=== PATIENT | male | born 1975 | race Caucasian/White ===

== ENCOUNTER 2016-05-03 12:53 | Emergency (ER) | payer MEDICARE ==
[~2016-05-03] VITALS: Ht 198.1 cm; Wt 132.0 kg
[~2016-05-03 12:53] MED LIST: ACETAMINOPHEN W1 TA6 PO; ADVAIR 250/28 DISKUS IH; ADVAIR 500/28 DISKUS IH; ADVAIR IH; ALBUTEROL0.09 MG/A1 IH; ALBUTEROL0.83 MG/ML IH; ALEVE 220MG220 MG PO; AMANTADINE HCL100 M1 PO; AMARYL PO; AMBIEN 10MG10 MG PO; AMBIEN CR12.5 MG PO; ASPIRIN E.C. 8181 MG PO; ATIVAN 0.50.5 MG/TAB PO; ATIVAN 1MG T1 MG/TAB PO; AUGMENTIN 875 M1 TAB PO; AVANZA; AVINZA; B12; BACTRIM DS 8001 TAB PO; BIAXIN500 MG PO; BUSPAR DIVIDOSE15 MG PO; BUSPAR10 MG PO; BUSPIRONE; CATAPRES-T0.2 MG/24 TD; CEPHALEXIN500 M1 PO; CIPRO 500MG TA500 MG PO; CLEOCIN HCL300 MG PO; CLINDAMYCIN HC300 MG PO; CLINDAMYCIN300 MG PO; CLONAZEPAM PO; CYMBALTA 60MG60 MG PO; CYPROHEPTADINE H4 MG PO; DILAUDID 2MG TAB2 MG PO; DILAUDID 4MG TAB4 MG PO; DILAUDID4 MG PO; DOXYCYCLINE 10100 MG PO; ESCITALOPRAM PO; FLEXERIL10 MG PO; GABAPENTIN300 M1 PO; GABAPENTIN600 MG PO; GLIPIZIDE10 M1 PO; GLUCOPHAGE PO; GLUCOPHAGE1000 MG PO; GLYBURIDE MICRON3 MG PO; GLYBURIDE5 MG PO; HYDROCODONE/APAP; INSULIN R (N100 U/ML IJ; INSULIN R (N100 U/ML SC; KLONOPIN 1MG1 MG PO; KLONOPIN2 MG PO; LAMICTAL 25MG T25 MG PO; LANTUS100 U/ML; LANTUS100 U/ML SQ; LASIX 40MG TABL40 MG PO; LIPITOR 40MG TA40 MG PO; LISINOPRIL10 MG PO; LOPRESSOR 225 MG/TAB PO; MELATONIN3 M1 PO; METFORMIN1000 MG PO; METHADONE H10 MG/TAB PO; METHOCARBAMOL500 MG PO; MORPHINE ER; MOTRIN 400400 MG/TAB PO; MOTRIN 800800 MG/TAB PO; MS CONTIN 115 MG/TAB PO; MS CONTIN 660 MG/TAB PO; MS CONTIN100 MG PO; NEURONTIN600 MG/TAB PO; NITROSTAT0.4 MG/TAB SL; NOVOLIN R100 U/ML IJ; NOVOLOG 100U100 U/M1 SC; NOVOLOG 100U100 U/M1 SQ; NOVOLOG100 U/ML IV; ORAMORPH PO; PEN-VEE K500 MG PO; PERCOCET 500 MG1 TAB PO; PERCOCET 650 MG1 TAB PO; PERCR 7.5 PO; PHENERGAN 25 TA25 MG PO; PLAVIX 75MG TAB75 MG PO; PREDNISONE 20MG20 MG PO; PREDNISONE 5MG5 MG PO; PREDNISONE20 MG PO; PRIL40 PO; PROAIR HFA0.09 MG/AC IH; PROVENTIL0.09 MG/A1 IH; PROVENTIL0.09 MG/AC IH; SEPTRA DS 8001 TAB PO; SEROQUEL; SINGULAIR; SOMA 350MG350 MG/TAB PO; UNABLE; VALERIAN ROOT PO; VENTOLIN0.09 MG IH; ZESTRIL10 MG PO; ZESTRIL40 MG PO; ZITHROMAX 250M250 MG PO; [UNRECOGNIZED DRUG - OTHER]; [UNRECOGNIZED DRUG - OTHER]; [UNRECOGNIZED DRUG - OTHER]; [UNRECOGNIZED DRUG - REMARK]; lantus insulin
[2016-05-03 13:03] VITALS: TEMP 98.3
[2016-05-03 14:36] LABS: BASO % 0.3 % (0.0-2.0); EOS % 0.4 % (0-4.0); GRAN # 5.1 (1.4-6.5); GRAN % 55.2 % (42.2-75.2); HEMATOCRIT 44.4 % (42.0-52.0); HEMOGLOBIN 15.6 g/dl (13.5-18.0); LYMPH # 3.6 (1.2-3.4); LYMPH % 38.6 % (20.0-51.0); MEAN CELL VOLUME 80 fl (80.0-100.0); MEAN CORPUSCULAR HEMOGLOBIN 28 pg (27.0-31.0); MEAN CORPUSCULAR HGB CONC 35 g/dl (33.0-37.0); MEAN PLATELET VOLUME 9.5 fl (7.4-10.4); MONO # 0.5 (0.1-0.6); MONO % 5.2 % (1.7-9.3); PLATELET COUNT 219 K/mm3 (130-400); RED BLOOD COUNT 5.54 M/mm3 (4.20-5.60); REDCELL DISTRIBUTION WIDTH-CV 13.6 % (11.5-14.5); WHITE BLOOD COUNT 9.3 K/mm3 (4.8-10.8)
[2016-05-03 14:56] LABS: ADJUSTED CALCIUM 9.4 mg/dL (8.4-10.2); ALANINE AMINOTRANSFERASE 40 U/L (21-72); ALBUMIN 4.2 gm/dL (3.5-5.0); ALKALINE PHOSPHATASE 96 U/L (50-136); ANION GAP 14 mmol/L (7-16); BLOOD UREA NITROGEN 9 mg/dL (9-20); CALCIUM 9.6 mg/dL (8.4-10.2); CARBON DIOXIDE 25 mmol/L (22-30); CHLORIDE 93 mmol/L (98-107); CREATININE, serum 0.51 mg/dL (0.66-1.25); POTASSIUM 4.3 mmol/L (3.4-5.0); SODIUM 132 mmol/L (137-145); TOTAL PROTEIN 8.2 gm/dL (6.4-8.2)
[2016-05-03 14:59] LABS: GLUCOSE 578 mg/dL (74-106)
[2016-05-03] MEDS ORDERED: NORCO 325 MG-7.1 TAB PO (16:36)
[2016-05-03] MEDS ORDERED: CLEOCIN HC150 MG/CAP PO (16:36)
[2016-05-03] MEDS ORDERED: NOVLOG SQ (16:36)
[2016-05-03] MEDS ORDERED: LANTUS SOLOS100 U/ML SQ (16:36)
[2016-05-03 17:18] VITALS: BP 157/107; PULSE 95
== END 2016-05-03 17:21 | disposition home or self-care (01) ==
LOC: COL.ER 12:53
PROVIDERS: Emergency Medicine
DX: E11.65 Type 2 diabetes mellitus with hyperglycemia (principal); K04.7 Periapical abscess without sinus; T38.3X6A Underdosing of insulin and oral hypoglycemic [antidiabetic] drugs, initial encounter; Z91.128 Patient's intentional underdosing of medication regimen for other reason; I10 Essential (primary) hypertension
CPT/HCPCS: J1170; J1815; J7030

== ENCOUNTER 2016-05-04 10:33 | Emergency (ER) | payer MEDICARE ==
[~2016-05-04] VITALS: Ht 198.1 cm; Wt 132.0 kg
[~2016-05-04 10:33] MED LIST changes: +CLEOCIN HC150 MG/CAP PO; +LANTUS SOLOS100 U/ML SQ; +NORCO 325 MG-7.1 TAB PO; +NOVLOG SQ
[2016-05-04 10:52] VITALS: BP 156/103; PULSE 104; TEMP 97.9
[2016-05-04 12:00] LABS: BASO # 0.1 (0.0-0.2); BASO % 0.4 % (0.0-2.0); EOS # 0.1 (0.0-0.7); EOS % 0.8 % (0-4.0); GRAN # 7.1 (1.4-6.5); GRAN % 58.8 % (42.2-75.2); HEMOGLOBIN 15.5 g/dl (13.5-18.0); LYMPH # 4.1 (1.2-3.4); LYMPH % 34.2 % (20.0-51.0); MEAN CELL VOLUME 80 fl (80.0-100.0); MEAN CORPUSCULAR HEMOGLOBIN 28 pg (27.0-31.0); MEAN CORPUSCULAR HGB CONC 35 g/dl (33.0-37.0); MEAN PLATELET VOLUME 9.4 fl (7.4-10.4); MONO # 0.7 (0.1-0.6); MONO % 5.4 % (1.7-9.3); PLATELET COUNT 234 K/mm3 (130-400); REDCELL DISTRIBUTION WIDTH-CV 13.5 % (11.5-14.5); WHITE BLOOD COUNT 12.1 K/mm3 (4.8-10.8)
[2016-05-04 12:21] LABS: CALCIUM 9.5 mg/dL (8.4-10.2); CREATININE, serum 0.47 mg/dL (0.66-1.25)
[2016-05-05] MEDS ORDERED: NORCO 325 MG-51 TAB PO (13:59)
== END 2016-05-04 15:20 | disposition home or self-care (01) ==
LOC: COL.ER 10:33
PROVIDERS: Physician Assistant
DX: K12.2 Cellulitis and abscess of mouth (principal); K08.89 Other specified disorders of teeth and supporting structures; F17.210 Nicotine dependence, cigarettes, uncomplicated; E10.9 Type 1 diabetes mellitus without complications; Z79.4 Long term (current) use of insulin
CPT/HCPCS: J1170; J1885; J7030; Q9967

== ENCOUNTER 2016-05-05 13:18 | Emergency (ER) | payer MEDICARE ==
[~2016-05-05] VITALS: Ht 198.1 cm; Wt 131.8 kg
[2016-05-05 13:28] VITALS: BP 156/86; TEMP 98.2
[2016-05-05] MEDS ORDERED: NORCO 325 MG-51 TAB PO (13:59)
[2016-05-05 15:09] VITALS: PULSE 112
== END 2016-05-05 15:09 | disposition home or self-care (01) ==
LOC: COL.ER 13:18
DX: K08.89 Other specified disorders of teeth and supporting structures (principal)
CPT/HCPCS: J1885; J2270

== ENCOUNTER 2016-09-23 11:28 | Emergency (ER) | payer MEDICARE ==
[~2016-09-23] VITALS: Ht 198.1 cm; Wt 150.0 kg
[~2016-09-23 11:28] MED LIST changes: +NORCO 325 MG-51 TAB PO
[2016-09-23 11:35] VITALS: TEMP 98.7
[2016-09-23 13:04] VITALS: BP 143/90
[2016-09-23] MEDS ORDERED: PREDNISONE20 MG PO (14:17)
[2016-09-23] MEDS ORDERED: ZITHROMAX Z PA250 MG PO (14:17)
[2016-09-23 14:30] VITALS: PULSE 102
== END 2016-09-23 14:30 | disposition home or self-care (01) ==
LOC: COL.ER 11:28
DX: J20.9 Acute bronchitis, unspecified (principal); J45.909 Unspecified asthma, uncomplicated; E11.9 Type 2 diabetes mellitus without complications; I10 Essential (primary) hypertension; C81.90 Hodgkin lymphoma, unspecified, unspecified site; F17.210 Nicotine dependence, cigarettes, uncomplicated; T48.6X6A Underdosing of antiasthmatics, initial encounter; Z91.138 Patient's unintentional underdosing of medication regimen for other reason; T38.3X6A Underdosing of insulin and oral hypoglycemic [antidiabetic] drugs, initial encounter; R00.0 Tachycardia, unspecified; K03.81 Cracked tooth; R59.0 Localized enlarged lymph nodes
CPT/HCPCS: J7512

== ENCOUNTER 2016-09-26 10:21 | Emergency (ER) | payer MEDICARE ==
[~2016-09-26] VITALS: Ht 198.1 cm; Wt 150.0 kg
[~2016-09-26 10:21] MED LIST changes: +ZITHROMAX Z PA250 MG PO
[2016-09-26 10:23] VITALS: TEMP 98.3
[2016-09-26] MEDS ORDERED: PROVENTIL0.09 MG/A1 IH (10:54)
[2016-09-26 13:21] LABS: BASO % 0.2 % (0.0-2.0); EOS % 0.1 % (0-4.0); GRAN # 7.3 (1.4-6.5); GRAN % 71.5 % (42.2-75.2); HEMATOCRIT 44.4 % (42.0-52.0); HEMOGLOBIN 15.1 g/dl (13.5-18.0); LYMPH # 2.3 (1.2-3.4); LYMPH % 22.3 % (20.0-51.0); MEAN CELL VOLUME 91 fl (80.0-100.0); MEAN CORPUSCULAR HEMOGLOBIN 31 pg (27.0-31.0); MEAN CORPUSCULAR HGB CONC 34 g/dl (33.0-37.0); MEAN PLATELET VOLUME 9.2 fl (7.4-10.4); MONO # 0.6 (0.1-0.6); MONO % 5.5 % (1.7-9.3); PLATELET COUNT 249 K/mm3 (130-400); RED BLOOD COUNT 4.89 M/mm3 (4.20-5.60); REDCELL DISTRIBUTION WIDTH-CV 12.9 % (11.5-14.5); WHITE BLOOD COUNT 10.2 K/mm3 (4.8-10.8)
[2016-09-26 13:23] LABS: ADJUSTED CALCIUM 8.8 mg/dL (8.4-10.2); ALBUMIN 3.8 gm/dL (3.5-5.0); BILIRUBIN,TOTAL 0.8 mg/dL (0.0-1.0); CALCIUM 8.6 mg/dL (8.4-10.2); CREATININE, serum 0.66 mg/dL (0.66-1.25); POTASSIUM 4.1 mmol/L (3.4-5.0); TOTAL PROTEIN 7.3 gm/dL (6.4-8.2)
[2016-09-26 13:34] LABS: TROPONIN-I 0.024 ng/mL (0.000-0.034)
[2016-09-26] MEDS ORDERED: GLUCOPHAGE500 MG/TAB PO (15:40)
[2016-09-26] MEDS ORDERED: PHENERGAN W/CO120 M1 PO (15:40)
[2016-09-26] MEDS ORDERED: LASIX 40MG TABL40 MG PO (15:40)
[2016-09-26 15:49] VITALS: BP 162/108; PULSE 99
== END 2016-09-26 15:50 | disposition home or self-care (01) ==
LOC: COL.ER 10:21
PROVIDERS: Nurse Practitioner
DX: E11.65 Type 2 diabetes mellitus with hyperglycemia (principal); I10 Essential (primary) hypertension; R79.89 Other specified abnormal findings of blood chemistry; J44.9 Chronic obstructive pulmonary disease, unspecified; F17.210 Nicotine dependence, cigarettes, uncomplicated; Z79.4 Long term (current) use of insulin; Z85.72 Personal history of non-Hodgkin lymphomas
CPT/HCPCS: J1940

== ENCOUNTER → 2016-11-16 | Outpatient (CLI) | payer MEDICARE, MEDICAID ==
[~2016-11-16] MED LIST changes: +GLUCOPHAGE500 MG/TAB PO; +PHENERGAN W/CO120 M1 PO
== END ==
LOC: COL.RAD 08:14
DX: M48.06 Spinal stenosis, lumbar region (principal); R53.1 Weakness

== ENCOUNTER 2016-12-24 12:36 | Emergency (ER) | payer MEDICARE, MEDICAID ==
[~2016-12-24] VITALS: Ht 198.1 cm; Wt 151.8 kg
[2016-12-24 12:42] VITALS: TEMP 98.3
[2016-12-24] MEDS ORDERED: DOXYCYCLINE 10100 MG PO (13:40)
[2016-12-24] MEDS ORDERED: LEVEMIR100 U/ML SQ (13:41)
[2016-12-24] MEDS ORDERED: IPRATROPIUM BROM3 M1 IH (13:43)
[2016-12-24] MEDS ORDERED: NEURONTIN300 MG/CAP PO (13:44)
[2016-12-24] MEDS ORDERED: PRINIVIL40 MG PO (13:44)
[2016-12-24] MEDS ORDERED: ASPIRIN E.C. 8181 MG (13:45)
[2016-12-24] MEDS ORDERED: LIPITOR 10MG10 MG (13:45)
[2016-12-24] MEDS ORDERED: LIPITOR 40MG TA40 MG (13:46)
[2016-12-24] MEDS ORDERED: AMBIEN 10MG10 MG PO (13:46)
[2016-12-24] MEDS ORDERED: PLAVIX 75MG TAB75 MG (13:46)
[2016-12-24] MEDS ORDERED: CARTIA XT180 MG (13:46)
[2016-12-24 14:06] LABS: BASO % 0.4 % (0.0-2.0); EOS # 0.1 (0.0-0.7); EOS % 1.1 % (0-4.0); GRAN # 4.6 (1.4-6.5); GRAN % 50.7 % (42.2-75.2); HEMATOCRIT 40.6 % (42.0-52.0); HEMOGLOBIN 13.7 g/dl (13.5-18.0); LYMPH # 3.8 (1.2-3.4); LYMPH % 42.2 % (20.0-51.0); MEAN CELL VOLUME 90 fl (80.0-100.0); MEAN CORPUSCULAR HEMOGLOBIN 30 pg (27.0-31.0); MEAN CORPUSCULAR HGB CONC 34 g/dl (33.0-37.0); MONO # 0.5 (0.1-0.6); MONO % 5.3 % (1.7-9.3); PLATELET COUNT 284 K/mm3 (130-400); RED BLOOD COUNT 4.53 M/mm3 (4.20-5.60); REDCELL DISTRIBUTION WIDTH-CV 13.5 % (11.5-14.5); WHITE BLOOD COUNT 9.1 K/mm3 (4.8-10.8)
[2016-12-24 14:11] LABS: ADJUSTED CALCIUM 9.1 mg/dL (8.4-10.2); ALANINE AMINOTRANSFERASE 32 U/L (21-72); ALBUMIN 4.1 gm/dL (3.5-5.0); ALKALINE PHOSPHATASE 57 U/L (50-136); ANION GAP 12 mmol/L (7-16); BILIRUBIN,TOTAL 0.7 mg/dL (0.0-1.0); BLOOD UREA NITROGEN 14 mg/dL (9-20); CALCIUM 9.2 mg/dL (8.4-10.2); CARBON DIOXIDE 25 mmol/L (22-30); CHLORIDE 103 mmol/L (98-107); CREATININE, serum 0.67 mg/dL (0.66-1.25); GLUCOSE 251 mg/dL (74-106); SODIUM 141 mmol/L (137-145); TOTAL PROTEIN 7.2 gm/dL (6.4-8.2)
[2016-12-24] MEDS ORDERED: PREDNISONE20 MG PO (15:12)
[2016-12-24 15:34] LABS: TROPONIN-I 0.026 ng/mL (0.000-0.034)
[2016-12-24] MEDS ORDERED: LASIX 20MG TABL20 MG PO (15:43)
[2016-12-24 15:55] VITALS: BP 121/95; PULSE 54
== END 2016-12-24 15:55 | disposition home or self-care (01) ==
LOC: COL.ER 12:36
PROVIDERS: Emergency Medicine
DX: J45.909 Unspecified asthma, uncomplicated (principal); J18.9 Pneumonia, unspecified organism; I25.10 Atherosclerotic heart disease of native coronary artery without angina pectoris; E11.9 Type 2 diabetes mellitus without complications; F17.210 Nicotine dependence, cigarettes, uncomplicated; Z98.890 Other specified postprocedural states; Z79.4 Long term (current) use of insulin; Z79.84 Long term (current) use of oral hypoglycemic drugs; Z79.82 Long term (current) use of aspirin
CPT/HCPCS: J1815; J7512

== ENCOUNTER → 2017-01-04 | Outpatient (CLI) | payer MEDICARE, MEDICAID ==
[~2017-01-04] MED LIST changes: +AMOXICILLIN 8751 TAB PO; +CARTIA XT180 MG; +COZAAR 50MG50 MG/TAB PO; +FOLIC ACID 11 MG/TA1 PO; +IPRATROPIUM BROM3 M1 IH; +K-TAB10; +LASIX 20MG TABL20 MG PO; +LEVEMIR100 U/ML SQ; +LIPITOR 10MG10 MG; +LIPITOR 40MG TA40 MG; +MULTI VITAMINS1 TAB PO; +NEURONTIN300 MG/CAP PO; +NICODERM C21 MG/PATC TD; +NITRO-DUR0.6 MG/PAT TD; +PLAVIX 75MG TAB75 MG; +PRINIVIL40 MG PO; +PRINZIDE 12.5 M1 TA1 PO; +THIAMINE 1100 MG/TAB PO; +TOPROL XL 25MG25 MG PO
== END ==
LOC: MHCPAIN 09:45
DX: G89.29 Other chronic pain (principal); M47.27 Other spondylosis with radiculopathy, lumbosacral region; M53.3 Sacrococcygeal disorders, not elsewhere classified; F17.210 Nicotine dependence, cigarettes, uncomplicated; Z79.82 Long term (current) use of aspirin
CPT/HCPCS: G0463

== ENCOUNTER 2017-01-16 10:23 | Emergency (ER) | payer MEDICARE, MEDICAID ==
[~2017-01-16] VITALS: Ht 198.1 cm; Wt 155.5 kg
[2017-01-16 10:27] VITALS: TEMP 97.8
[2017-01-16 11:44] LABS: BASO # 0.1 (0.0-0.2); BASO % 0.6 % (0.0-2.0); EOS # 0.1 (0.0-0.7); EOS % 1.2 % (0-4.0); GRAN # 4.3 (1.4-6.5); GRAN % 49.4 % (42.2-75.2); HEMATOCRIT 39.7 % (42.0-52.0); HEMOGLOBIN 13.1 g/dl (13.5-18.0); LYMPH # 3.7 (1.2-3.4); LYMPH % 42.2 % (20.0-51.0); MEAN CELL VOLUME 92 fl (80.0-100.0); MEAN CORPUSCULAR HEMOGLOBIN 30 pg (27.0-31.0); MEAN CORPUSCULAR HGB CONC 33 g/dl (33.0-37.0); MEAN PLATELET VOLUME 9.4 fl (7.4-10.4); MONO # 0.6 (0.1-0.6); MONO % 6.4 % (1.7-9.3); PLATELET COUNT 228 K/mm3 (130-400); RED BLOOD COUNT 4.34 M/mm3 (4.20-5.60); WHITE BLOOD COUNT 8.7 K/mm3 (4.8-10.8)
[2017-01-16] MEDS ORDERED: REQUIP 1MG T1 MG/TAB PO (11:44)
[2017-01-16 11:54] LABS: ADJUSTED CALCIUM 8.5 mg/dL (8.4-10.2); ALANINE AMINOTRANSFERASE 37 U/L (21-72); ALBUMIN 4.3 gm/dL (3.5-5.0); ALKALINE PHOSPHATASE 48 U/L (50-136); ANION GAP 10 mmol/L (7-16); BILIRUBIN,TOTAL 0.5 mg/dL (0.0-1.0); BLOOD UREA NITROGEN 20 mg/dL (9-20); CALCIUM 8.7 mg/dL (8.4-10.2); CARBON DIOXIDE 23 mmol/L (22-30); CHLORIDE 106 mmol/L (98-107); CREATININE, serum 0.77 mg/dL (0.66-1.25); GLUCOSE 196 mg/dL (74-106); POTASSIUM 4.3 mmol/L (3.4-5.0); SODIUM 140 mmol/L (137-145); TOTAL PROTEIN 7.2 gm/dL (6.4-8.2)
[2017-01-16 11:55] LABS: PROTHROMBIN TIME 11.2 SECONDS (9.7-12.8)
[2017-01-16 11:58] LABS: C-REACTIVE PROTEIN < 0.5 mg/dL (0.0-0.9)
[2017-01-16 12:02] LABS: TROPONIN-I 0.015 ng/mL (0.000-0.034)
[2017-01-16] MEDS ORDERED: ULTRAM 50MG TAB50 MG PO (12:38)
[2017-01-16 12:55] VITALS: BP 123/88; PULSE 101
== END 2017-01-16 12:57 | disposition home or self-care (01) ==
LOC: COL.ER 10:23
PROVIDERS: Emergency Medicine
DX: G89.29 Other chronic pain (principal); M54.6 Pain in thoracic spine; E78.5 Hyperlipidemia, unspecified; E11.42 Type 2 diabetes mellitus with diabetic polyneuropathy; I11.0 Hypertensive heart disease with heart failure; I50.9 Heart failure, unspecified; I25.10 Atherosclerotic heart disease of native coronary artery without angina pectoris; F17.210 Nicotine dependence, cigarettes, uncomplicated; Z98.890 Other specified postprocedural states; Z79.82 Long term (current) use of aspirin; Z79.4 Long term (current) use of insulin; X58.XXXA Exposure to other specified factors, initial encounter
CPT/HCPCS: J1885; J7040; Q9967

== ENCOUNTER 2017-01-20 10:38 | Emergency (ER) | payer MEDICARE, MEDICAID ==
[~2017-01-20] VITALS: Ht 198.1 cm; Wt 156.8 kg
[~2017-01-20 10:38] MED LIST changes: +REQUIP 1MG T1 MG/TAB PO; +ULTRAM 50MG TAB50 MG PO
[2017-01-20 10:46] VITALS: TEMP 95.8
[2017-01-20] MEDS ORDERED: ZANAFLEX CAPSULE4 MG PO (11:58)
[2017-01-20] MEDS ORDERED: NATURE'S BLEND100 M2 PO (11:59)
[2017-01-20 12:22] LABS: BASO # 0.1 (0.0-0.2); BASO % 0.5 % (0.0-2.0); EOS % 0.3 % (0-4.0); GRAN # 6.3 (1.4-6.5); GRAN % 62.9 % (42.2-75.2); HEMATOCRIT 39.6 % (42.0-52.0); HEMOGLOBIN 12.9 g/dl (13.5-18.0); LYMPH % 29.8 % (20.0-51.0); MEAN CELL VOLUME 92 fl (80.0-100.0); MEAN CORPUSCULAR HEMOGLOBIN 30 pg (27.0-31.0); MEAN CORPUSCULAR HGB CONC 33 g/dl (33.0-37.0); MEAN PLATELET VOLUME 9.7 fl (7.4-10.4); MONO # 0.6 (0.1-0.6); MONO % 6.1 % (1.7-9.3); PLATELET COUNT 228 K/mm3 (130-400); RED BLOOD COUNT 4.29 M/mm3 (4.20-5.60)
[2017-01-20 12:27] LABS: ADJUSTED CALCIUM 8.7 mg/dL (8.4-10.2); ALANINE AMINOTRANSFERASE 70 U/L (21-72); ALBUMIN 3.9 gm/dL (3.5-5.0); ALKALINE PHOSPHATASE 89 U/L (50-136); ANION GAP 12 mmol/L (7-16); BILIRUBIN,TOTAL 0.7 mg/dL (0.0-1.0); BLOOD UREA NITROGEN 27 mg/dL (9-20); CALCIUM 8.6 mg/dL (8.4-10.2); CARBON DIOXIDE 21 mmol/L (22-30); CHLORIDE 102 mmol/L (98-107); CREATININE, serum 1.36 mg/dL (0.66-1.25); GLUCOSE 219 mg/dL (74-106); POTASSIUM 4.6 mmol/L (3.4-5.0); SODIUM 135 mmol/L (137-145); TOTAL PROTEIN 6.8 gm/dL (6.4-8.2)
[2017-01-20 12:38] LABS: TROPONIN-I < 0.012 ng/mL (0.000-0.034)
[2017-01-20 14:07] LABS: C-REACTIVE PROTEIN 1.4 mg/dL (0.0-0.9)
[2017-01-20] MEDS ORDERED: LASIX 40MG TABL40 MG PO (14:28)
[2017-01-20] MEDS ORDERED: PHENERGAN 25 TA25 MG PO (15:42)
[2017-01-20 15:43] VITALS: BP 96/66; PULSE 87
== END 2017-01-20 15:54 | disposition home or self-care (01) ==
LOC: COL.ER 10:38
PROVIDERS: Emergency Medicine
DX: R06.00 Dyspnea, unspecified (principal); R11.10 Vomiting, unspecified; E10.9 Type 1 diabetes mellitus without complications; I25.10 Atherosclerotic heart disease of native coronary artery without angina pectoris; I50.9 Heart failure, unspecified; Z95.5 Presence of coronary angioplasty implant and graft; Z79.82 Long term (current) use of aspirin
CPT/HCPCS: C9113; J1170; J2550; J7030

== ENCOUNTER 2017-03-30 09:20 | Emergency (ER) | payer MEDICARE, MEDICAID ==
[~2017-03-30] VITALS: Ht 198.1 cm; Wt 216.5 kg
[~2017-03-30 09:20] MED LIST changes: +BREO IH; +ENTRESTO 24 MG1 EACH PO; +K-DUR 10 MEQ T10 MEQ PO; +LIORESAL 1010 MG/TAB PO; +LYRICA 100MG C100 M1 PO; +NATURE'S BLEND100 M2 PO; +ZANAFLEX CAPSULE4 MG PO
[2017-03-30 09:23] VITALS: BP 136/72; TEMP 98.1
[2017-03-30 10:47] LABS: ALBUMIN 3.9 gm/dL (3.5-5.0); BILIRUBIN,TOTAL 0.7 mg/dL (0.0-1.0); CALCIUM 8.6 mg/dL (8.4-10.2); CREATININE, serum 0.8 mg/dL (0.66-1.25); POTASSIUM 4.1 mmol/L (3.4-5.0); TOTAL PROTEIN 7.1 gm/dL (6.4-8.2)
[2017-03-30 11:07] LABS: BASO % 0.6 % (0.0-2.0); EOS # 0.1 (0.0-0.7); EOS % 1.7 % (0-4.0); GRAN # 3.3 (1.4-6.5); HEMATOCRIT 42.1 % (42.0-52.0); HEMOGLOBIN 13.1 g/dl (13.5-18.0); LYMPH # 2.2 (1.2-3.4); LYMPH % 35.1 % (20.0-51.0); MEAN CELL VOLUME 88 fl (80.0-100.0); MEAN CORPUSCULAR HEMOGLOBIN 28 pg (27.0-31.0); MEAN CORPUSCULAR HGB CONC 31 g/dl (33.0-37.0); MONO # 0.6 (0.1-0.6); MONO % 9.4 % (1.7-9.3); PLATELET COUNT 226 K/mm3 (130-400); RED BLOOD COUNT 4.76 M/mm3 (4.20-5.60); REDCELL DISTRIBUTION WIDTH-CV 14.7 % (11.5-14.5)
[2017-03-30] MEDS ORDERED: DEMADEX 20MG20 M1 PO (15:20)
[2017-03-30] MEDS ORDERED: ZAROXOLYN5 MG PO (15:20)
[2017-03-30 16:30] VITALS: PULSE 85
== END 2017-03-30 16:30 | disposition home or self-care (01) ==
LOC: COL.ER 09:20
PROVIDERS: Emergency Medicine
DX: R60.0 Localized edema (principal); E11.9 Type 2 diabetes mellitus without complications; I11.0 Hypertensive heart disease with heart failure; I50.9 Heart failure, unspecified; E66.01 Morbid (severe) obesity due to excess calories; E78.00 Pure hypercholesterolemia, unspecified; F17.210 Nicotine dependence, cigarettes, uncomplicated; Z68.43 Body mass index [BMI] 50.0-59.9, adult; Z85.72 Personal history of non-Hodgkin lymphomas; Z79.4 Long term (current) use of insulin; Z79.82 Long term (current) use of aspirin
CPT/HCPCS: J1170

== ENCOUNTER → 2017-04-07 | Outpatient (CLI) | payer MEDICARE, MEDICAID ==
[~2017-04-07] MED LIST changes: +ATIVAN2 MG PO; +DEMADEX 20MG20 M1 PO; +MAG-OX 400400 MG/TAB PO; +NORCO 325 MG-101 TAB PO; +VITAMIN D 50,1.25 MG PO; +ZAROXOLYN5 MG PO
== END ==
LOC: MHCPAIN 13:48
DX: G89.29 Other chronic pain (principal); M47.23 Other spondylosis with radiculopathy, cervicothoracic region; M53.3 Sacrococcygeal disorders, not elsewhere classified; F17.210 Nicotine dependence, cigarettes, uncomplicated
CPT/HCPCS: G0463

== ENCOUNTER 2017-09-11 13:27 | Emergency (ER) | payer MEDICARE ==
[~2017-09-11] VITALS: Ht 198.1 cm; Wt 159.1 kg
[~2017-09-11 13:27] MED LIST changes: +ALDACTONE50 MG PO; +COLACE 100100 MG/CAP PO; +DULCOLAX S10 MG/SUPP RC; +MIRALAX 255 GM255 GM PO
[2017-09-11 13:34] VITALS: TEMP 97.5
[2017-09-11] MEDS ORDERED: CLEOCIN HCL300 MG PO (14:04)
[2017-09-11 14:14] VITALS: PULSE 104
== END 2017-09-11 14:14 | disposition home or self-care (01) ==
LOC: COL.ER 13:27
DX: K02.9 Dental caries, unspecified (principal); E11.9 Type 2 diabetes mellitus without complications; I10 Essential (primary) hypertension; F17.210 Nicotine dependence, cigarettes, uncomplicated; J45.909 Unspecified asthma, uncomplicated; I42.9 Cardiomyopathy, unspecified; Z79.84 Long term (current) use of oral hypoglycemic drugs

== ENCOUNTER 2017-10-01 13:00 | Outpatient (RCR) | payer MEDICARE | END 2017-10-20 11:13 | disposition home or self-care (01) | LOC: WSPT 13:00 | DX: M54.16 Radiculopathy, lumbar region (principal); M53.3 Sacrococcygeal disorders, not elsewhere classified; M47.897 Other spondylosis, lumbosacral region; Z85.72 Personal history of non-Hodgkin lymphomas; Z92.21 Personal history of antineoplastic chemotherapy | CPT/HCPCS: G8978-GP; G8979-GP; G8980-GP ==

== ENCOUNTER 2017-12-07 14:28 | Inpatient (IN) | payer MEDICARE ==
[~2017-12-07] VITALS: Ht 198.1 cm; Wt 165.6 kg
[~2017-12-07 14:28] MED LIST changes: -LIPITOR 40MG TA40 MG
[2017-12-07 15:39] LABS: BASO % 0.4 % (0.0-2.0); EOS # 0.1 (0.0-0.7); EOS % 1.1 % (0-4.0); GRAN # 6.8 (1.4-6.5); HEMATOCRIT 40.4 % (42.0-52.0); HEMOGLOBIN 13.8 g/dl (13.5-18.0); LYMPH # 1.8 (1.2-3.4); LYMPH % 18.4 % (20.0-51.0); MEAN CELL VOLUME 88 fl (80.0-100.0); MEAN CORPUSCULAR HEMOGLOBIN 30 pg (27.0-31.0); MEAN CORPUSCULAR HGB CONC 34 g/dl (33.0-37.0); MEAN PLATELET VOLUME 9.7 fl (7.4-10.4); MONO # 0.8 (0.1-0.6); MONO % 8.6 % (1.7-9.3); PLATELET COUNT 228 K/mm3 (130-400); RED BLOOD COUNT 4.58 M/mm3 (4.20-5.60); REDCELL DISTRIBUTION WIDTH-CV 12.2 % (11.5-14.5)
[2017-12-07 15:48] LABS: ALBUMIN 3.5 gm/dL (3.5-5.0); BILIRUBIN,TOTAL 0.6 mg/dL (0.0-1.0); CALCIUM 8.1 mg/dL (8.4-10.2); CREATININE, serum 0.52 mg/dL (0.66-1.25); POTASSIUM 3.5 mmol/L (3.4-5.0); TOTAL PROTEIN 7.2 gm/dL (6.4-8.2)
[2017-12-07 16:00] LABS: C-REACTIVE PROTEIN 26.2 mg/dL (0.0-0.9)
[2017-12-07 16:10] LABS: TROPONIN-I < 0.012 ng/mL (0.000-0.034)
[2017-12-07] MEDS ORDERED: KLONOPIN2 MG PO (22:10)
[2017-12-07] MEDS ORDERED: DAZIDOX10 MG PO (22:11)
[2017-12-07 22:48] VITALS: BP 145/90; PULSE 113; TEMP 99
== END 2017-12-08 00:05 | disposition short-term general hospital (02) | DRG 727 ==
LOC: COL.ER 14:28 → ICU 17:31
PROVIDERS: Emergency Medicine; Urology
PROC: 0V950ZZ Drainage of Scrotum, Open Approach (ICD-10-PCS; principal; 2017-12-07 20:30)
DX: N49.3 Fournier gangrene (principal); E11.10 Type 2 diabetes mellitus with ketoacidosis without coma; I50.22 Chronic systolic (congestive) heart failure; I42.9 Cardiomyopathy, unspecified; B95.1 Streptococcus, group B, as the cause of diseases classified elsewhere; B95.2 Enterococcus as the cause of diseases classified elsewhere; F17.210 Nicotine dependence, cigarettes, uncomplicated; E11.42 Type 2 diabetes mellitus with diabetic polyneuropathy; Z79.4 Long term (current) use of insulin; Z95.810 Presence of automatic (implantable) cardiac defibrillator; J44.9 Chronic obstructive pulmonary disease, unspecified; Z85.72 Personal history of non-Hodgkin lymphomas; I11.0 Hypertensive heart disease with heart failure
CPT/HCPCS: J0330; J1100; J1170; J1815; J2060; J2405; J2543; J2704; J3010; J3370; J7030; J7040; Q9967

== ENCOUNTER 2018-02-09 11:52 | Emergency (ER) | payer MEDICARE ==
[~2018-02-09] VITALS: Ht 198.1 cm; Wt 181.8 kg
[~2018-02-09 11:52] MED LIST changes: +DAZIDOX10 MG PO
[2018-02-09 11:55] VITALS: TEMP 97.5
[2018-02-09 13:21] LABS: BASO # 0.1 (0.0-0.2); BASO % 0.6 % (0.0-2.0); EOS # 0.2 (0.0-0.7); EOS % 1.8 % (0-4.0); GRAN # 4.6 (1.4-6.5); HEMATOCRIT 45.1 % (42.0-52.0); LYMPH # 3.5 (1.2-3.4); LYMPH % 39.8 % (20.0-51.0); MEAN CELL VOLUME 87 fl (80.0-100.0); MEAN CORPUSCULAR HEMOGLOBIN 29 pg (27.0-31.0); MEAN CORPUSCULAR HGB CONC 33 g/dl (33.0-37.0); MONO # 0.5 (0.1-0.6); MONO % 5.6 % (1.7-9.3); PLATELET COUNT 199 K/mm3 (130-400); RED BLOOD COUNT 5.17 M/mm3 (4.20-5.60); REDCELL DISTRIBUTION WIDTH-CV 13.3 % (11.5-14.5)
[2018-02-09 13:26] LABS: BILIRUBIN,TOTAL 0.3 mg/dL (0.0-1.0); CALCIUM 8.4 mg/dL (8.4-10.2); CREATININE, serum 0.8 mg/dL (0.66-1.25); POTASSIUM 3.9 mmol/L (3.4-5.0); TOTAL PROTEIN 7.4 gm/dL (6.4-8.2)
[2018-02-09] MEDS ORDERED: CEPHALEXIN500 M1 PO ×2 (15:11→16:16)
[2018-02-09] MEDS ORDERED: NORCO 325 MG-51 TAB PO (15:11)
[2018-02-09 16:22] VITALS: BP 126/88; PULSE 89
== END 2018-02-09 16:44 | disposition home or self-care (01) ==
LOC: COL.ER 11:52
PROVIDERS: Family Medicine
DX: S31.119A Laceration without foreign body of abdominal wall, unspecified quadrant without penetration into peritoneal cavity, initial encounter (principal); S61.412A Laceration without foreign body of left hand, initial encounter; Z23 Encounter for immunization; Z79.4 Long term (current) use of insulin; Z79.02 Long term (current) use of antithrombotics/antiplatelets; Z79.82 Long term (current) use of aspirin; Z87.891 Personal history of nicotine dependence; X99.1XXA Assault by knife, initial encounter
CPT/HCPCS: J0690; J1170; J2405; J7030; Q9967

== ENCOUNTER → 2018-04-07 | Emergency (ER) | payer MEDICARE ==
[~2018-04-07] VITALS: Ht 198.1 cm; Wt 181.8 kg
[~2018-04-07] MED LIST changes: +TESSALON PERLE200 MG PO
[2018-04-07 06:00] VITALS: TEMP 97.2
[2018-04-07 06:51] LABS: BASO # 0.1 (0.0-0.2); BASO % 0.9 % (0.0-2.0); EOS # 0.1 (0.0-0.7); EOS % 2.2 % (0-4.0); GRAN # 3.6 (1.4-6.5); GRAN % 55.3 % (42.2-75.2); HEMATOCRIT 44.1 % (42.0-52.0); HEMOGLOBIN 14.7 g/dl (13.5-18.0); LYMPH # 2.1 (1.2-3.4); LYMPH % 31.9 % (20.0-51.0); MEAN CELL VOLUME 86 fl (80.0-100.0); MEAN CORPUSCULAR HEMOGLOBIN 29 pg (27.0-31.0); MEAN CORPUSCULAR HGB CONC 33 g/dl (33.0-37.0); MEAN PLATELET VOLUME 9.6 fl (7.4-10.4); MONO # 0.6 (0.1-0.6); MONO % 9.2 % (1.7-9.3); PLATELET COUNT 193 K/mm3 (130-400); RED BLOOD COUNT 5.12 M/mm3 (4.20-5.60); REDCELL DISTRIBUTION WIDTH-CV 13.5 % (11.5-14.5)
[2018-04-07 06:59] LABS: ALBUMIN 4.2 gm/dL (3.5-5.0); BILIRUBIN,TOTAL 0.6 mg/dL (0.0-1.0); CALCIUM 8.9 mg/dL (8.4-10.2); CREATININE, serum 0.59 mg/dL (0.66-1.25); POTASSIUM 4.7 mmol/L (3.4-5.0); TOTAL PROTEIN 7.7 gm/dL (6.4-8.2)
[2018-04-07 07:10] LABS: TROPONIN-I 0.015 ng/mL (0.000-0.034)
[2018-04-07 11:07] VITALS: BP 112/99; PULSE 110
--- NOTE | 2018-04-07 11:07 | NUR ---
diversified crops farmworker met with patient and assisted with voucher for medications at [facility]. Patient currently resides at the [facility] and is working with Yi Uribe at the [facility] to obtain apartment in the [facility] month. Worker arranged for financial counselor to meet with patient regarding medicaid application. Worker encouraged patient to make appointment at [facility] for medication assistance and to contact [facility] to help with other prescriptions. Worker assisted with a taxi coupon to [facility] and then to the [facility]. Worker collaborated with physician and nurse regarding the above information.
== END ==
LOC: COL.ER 05:59
PROVIDERS: Emergency Medicine
DX: R07.89 Other chest pain (principal); R06.02 Shortness of breath; I50.9 Heart failure, unspecified; E78.5 Hyperlipidemia, unspecified; I25.10 Atherosclerotic heart disease of native coronary artery without angina pectoris; I10 Essential (primary) hypertension; E11.9 Type 2 diabetes mellitus without complications; F17.210 Nicotine dependence, cigarettes, uncomplicated; J44.9 Chronic obstructive pulmonary disease, unspecified; Z79.4 Long term (current) use of insulin; Z79.82 Long term (current) use of aspirin; Z79.02 Long term (current) use of antithrombotics/antiplatelets
CPT/HCPCS: J1100

== ENCOUNTER → 2018-07-04 | Outpatient (CLI) | payer MEDICARE | LOC: COL.RAD 14:12 | DX: M25.511 Pain in right shoulder (principal) ==

== ENCOUNTER 2018-08-02 10:23 | Emergency (ER) | payer MEDICARE ==
[~2018-08-02] VITALS: Ht 198.1 cm; Wt 163.6 kg
[2018-08-02 10:26] VITALS: TEMP 97.2
[2018-08-02 10:59] LABS: HEMATOCRIT 44.9 % (42.0-52.0); HEMOGLOBIN 14.6 g/dl (13.5-18.0); MEAN CELL VOLUME 88 fl (80.0-100.0); MEAN CORPUSCULAR HEMOGLOBIN 29 pg (27.0-31.0); MEAN CORPUSCULAR HGB CONC 33 g/dl (33.0-37.0); MEAN PLATELET VOLUME 9.1 fl (7.4-10.4); PLATELET COUNT 246 K/mm3 (130-400); RED BLOOD COUNT 5.12 M/mm3 (4.20-5.60); REDCELL DISTRIBUTION WIDTH-CV 14.5 % (11.5-14.5)
[2018-08-02 11:10] LABS: ALBUMIN 4.1 gm/dL (3.5-5.0); BILIRUBIN,TOTAL 0.9 mg/dL (0.0-1.0); CREATININE, serum 0.6 (0.66-1.25); POTASSIUM 4.3 mmol/L (3.4-5.0); TOTAL PROTEIN 8.5 gm/dL (6.4-8.2)
[2018-08-02 11:16] LABS: BAND 1 % (0-10); LYMPHOCYTE 64 % (20.0-51.0); MYELOCYTE 1 % (0-0); NEUTROPHILS 30 % (42.0-75.2)
[2018-08-02 11:17] LABS: PLATELET ESTIMATE NORMAL (NORMAL)
[2018-08-02 11:20] LABS: TROPONIN-I 0.021 ng/mL (0.000-0.035)
[2018-08-02] MEDS ORDERED: DOXYCYCLINE 10100 MG PO (11:56)
[2018-08-02] MEDS ORDERED: PREDNISONE20 MG PO (13:32)
[2018-08-02] MEDS ORDERED: OMNICEF 300MG300 MG PO (13:48)
[2018-08-02 14:15] VITALS: BP 126/73; PULSE 107
== END 2018-08-02 14:27 | disposition home or self-care (01) ==
LOC: COL.ER 10:23
PROVIDERS: Emergency Medicine
DX: J20.9 Acute bronchitis, unspecified (principal); I11.0 Hypertensive heart disease with heart failure; E11.9 Type 2 diabetes mellitus without complications; I50.9 Heart failure, unspecified; E78.5 Hyperlipidemia, unspecified; F17.210 Nicotine dependence, cigarettes, uncomplicated; Z95.818 Presence of other cardiac implants and grafts; Z98.890 Other specified postprocedural states; Z79.4 Long term (current) use of insulin; Z79.82 Long term (current) use of aspirin; Z79.02 Long term (current) use of antithrombotics/antiplatelets; Z79.51 Long term (current) use of inhaled steroids
CPT/HCPCS: A4216; J0696; J1100; J1815; J2270; J2405; J7030

== ENCOUNTER 2018-10-05 10:46 | Day surgery (SDC) | payer MEDICARE ==
--- NOTE | 2018-10-04 10:44 | NUR ---
LEFT MESSAGE WITH PROCEDURE INSTRUCTIONS AND ENCOURAGED RETURN PHONE CALL FOR MEDICAL HISTORY.
[~2018-10-05] VITALS: Ht 198.1 cm; Wt 160.0 kg
[~2018-10-05 10:46] MED LIST changes: +OMNICEF 300MG300 MG PO
[2018-10-05] MEDS ORDERED: MIRALAX PA17 GM/Dose PO (11:48)
[2018-10-05] MEDS ORDERED: VITAMIN D31000 I1 PO (11:50)
[2018-10-05] MEDS ORDERED: FOLIC ACID 11 MG/TA1 PO (11:51)
[2018-10-05] MEDS ORDERED: KAPSPARGO SPRIN50 MG PO (11:58)
--- NOTE | 2018-10-05 12:00 | NUR ---
Unable to start PIV after 2 attempt. AIV notified for PIV.
[2018-10-05] MEDS ORDERED: MULTI VITAMINS1 TAB PO (12:07)
[2018-10-05] MEDS ORDERED: ENTRESTO 49 MG1 EACH PO (12:09)
[2018-10-05] MEDS ORDERED: DEMADEX100 MG PO (12:10)
[2018-10-05] MEDS ORDERED: CYMBALTA 60MG60 MG PO (12:11)
[2018-10-05] MEDS ORDERED: XARELTO20 MG PO (12:13)
[2018-10-05 12:14] LABS: POTASSIUM 4.2 mmol/L (3.4-5.0)
[2018-10-05 12:15] LABS: PROTHROMBIN TIME 12.2 SECONDS (9.7-12.8)
--- NOTE | 2018-10-05 12:15 | NUR ---
Lyndon RASCON from computer lab aide unable to start PIV after 2 attempts.
[2018-10-05 12:21] VITALS: BP 106/72; PULSE 106; TEMP 98
[2018-10-05 12:49] LABS: THYROID STIMULATING HORMONE 4.41 uIU/mL (0.465-4.680)
--- NOTE | 2018-10-05 13:20 | NUR ---
KAREN/CV cancelled per Dr. Ayala pt is in SR. Pt discharged per w/c by nurse with friends.
== END 2018-10-05 15:56 | disposition home or self-care (01) ==
LOC: COL.CAR 10:46
PROVIDERS: Internal Medicine Cardiovascular Disease
DX: I48.3 Typical atrial flutter (principal); I48.91 Unspecified atrial fibrillation; I11.0 Hypertensive heart disease with heart failure; I50.22 Chronic systolic (congestive) heart failure; G89.29 Other chronic pain; R60.0 Localized edema; E11.9 Type 2 diabetes mellitus without complications; J44.9 Chronic obstructive pulmonary disease, unspecified; I25.10 Atherosclerotic heart disease of native coronary artery without angina pectoris; Z83.3 Family history of diabetes mellitus; Z82.49 Family history of ischemic heart disease and other diseases of the circulatory system; F17.210 Nicotine dependence, cigarettes, uncomplicated

== ENCOUNTER 2018-12-02 12:59 | Emergency (ER) | payer MEDICARE ==
[~2018-12-02] VITALS: Ht 198.1 cm; Wt 157.3 kg
[~2018-12-02 12:59] MED LIST changes: +DEMADEX100 MG PO; +ENTRESTO 49 MG1 EACH PO; +KAPSPARGO SPRIN50 MG PO; +MIRALAX PA17 GM/Dose PO; +VITAMIN D31000 I1 PO; +XARELTO20 MG PO
[2018-12-02 14:04] VITALS: BP 118/71; TEMP 98
[2018-12-02 15:57] LABS: COLLECTION METHOD CLEAN CATCH
[2018-12-02 16:06] LABS: PH 5 (5-8); SQUAMOUS EPITHELIAL 0-2 /hpf; URINE APPEARANCE Clear; URINE BACTERIA None Seen /hpf; URINE BILIRUBIN Negative (NEGATIVE); URINE BLOOD Negative (NEGATIVE); URINE COLOR Straw; URINE GLUCOSE 1+ (NEGATIVE); URINE KETONE Negative (NEGATIVE); URINE LEUKOCYTE ESTERASE Negative (NEGATIVE); URINE NITRATE Negative (NEGATIVE); URINE PROTEIN(semi-quant) Negative (NEGATIVE); URINE RBC None Seen /hpf; URINE UROBILINOGEN Negative (NEGATIVE)
[2018-12-02] MEDS ORDERED: PREDNISONE20 MG PO (16:07)
[2018-12-02] MEDS ORDERED: ZITHROMAX Z PA250 MG PO (16:07)
[2018-12-02 17:25] VITALS: PULSE 88
== END 2018-12-02 17:25 | disposition home or self-care (01) ==
LOC: COL.ER 12:59
PROVIDERS: Physician Assistant
DX: J45.909 Unspecified asthma, uncomplicated (principal); J20.9 Acute bronchitis, unspecified; E11.9 Type 2 diabetes mellitus without complications; I25.10 Atherosclerotic heart disease of native coronary artery without angina pectoris; J44.9 Chronic obstructive pulmonary disease, unspecified; F41.9 Anxiety disorder, unspecified; F32.9 Major depressive disorder, single episode, unspecified; Z79.4 Long term (current) use of insulin

== ENCOUNTER 2019-02-28 20:35 | Emergency (ER) | payer MEDICARE ==
[~2019-02-28] VITALS: Ht 198.1 cm; Wt 161.4 kg
[2019-02-28 20:42] VITALS: TEMP 97.5
[2019-02-28 21:40] LABS: BASO # 0.1 (0.0-0.2); BASO % 0.7 % (0.0-2.0); EOS # 0.1 (0.0-0.7); EOS % 1.2 % (0-4.0); GRAN # 5.3 (1.4-6.5); GRAN % 51.8 % (42.2-75.2); HEMATOCRIT 46.8 % (42.0-52.0); HEMOGLOBIN 14.6 g/dl (13.5-18.0); LYMPH # 3.4 (1.2-3.4); LYMPH % 33.3 % (20.0-51.0); MEAN CELL VOLUME 90 fl (80.0-100.0); MEAN CORPUSCULAR HEMOGLOBIN 28 pg (27.0-31.0); MEAN CORPUSCULAR HGB CONC 31 g/dl (33.0-37.0); MEAN PLATELET VOLUME 9.5 fl (7.4-10.4); MONO # 1.3 (0.1-0.6); MONO % 12.5 % (1.7-9.3); PLATELET COUNT 302 K/mm3 (130-400); RED BLOOD COUNT 5.22 M/mm3 (4.20-5.60); REDCELL DISTRIBUTION WIDTH-CV 15.3 % (11.5-14.5)
[2019-02-28 21:51] LABS: ALANINE AMINOTRANSFERASE 620 U/L (21-72); ALBUMIN 3.9 gm/dL (3.5-5.0); ALKALINE PHOSPHATASE 233 U/L (50-136); ANION GAP 8 mmol/L (7-16); AST,SGOT > 750 U/L (15-37); BILIRUBIN,TOTAL 1.7 mg/dL (0.0-1.0); BLOOD UREA NITROGEN 18 mg/dL (9-20); C-REACTIVE PROTEIN 6.3 mg/dL (0.0-0.9); CALCIUM 8.4 mg/dL (8.4-10.2); CARBON DIOXIDE 31 mmol/L (22-30); CHLORIDE 97 mmol/L (98-107); CREATININE, serum 0.99 (0.66-1.25); GLUCOSE 63 mg/dL (74-106); LIPASE 15 U/L (23-300); SODIUM 136 mmol/L (137-145); TOTAL PROTEIN 7.5 gm/dL (6.4-8.2)
[2019-02-28 22:00] LABS: TROPONIN-I 0.019 ng/mL (0.000-0.035)
[2019-02-28 22:17] LABS: INR 1.8 (0.8-3.0); PROTHROMBIN TIME 21.4 SECONDS (9.7-12.8)
[2019-02-28 22:20] LABS: PARTIAL THROMBOPLASTIN TIME 37.4 SECONDS (26.0-37.0)
[2019-03-01] MEDS ORDERED: LASIX 80MG TABL80 MG PO (00:08)
[2019-03-01] MEDS ORDERED: VITAMINC1000TA PO (00:09)
[2019-03-01] MEDS ORDERED: PHARMASSURE ZIN50 MG PO (00:10)
[2019-03-01 01:58] VITALS: BP 93/74; PULSE 97
== END 2019-03-01 01:58 | disposition short-term general hospital (02) ==
LOC: COL.ER 20:35
PROVIDERS: Emergency Medicine
DX: I50.9 Heart failure, unspecified (principal); R10.12 Left upper quadrant pain; R10.11 Right upper quadrant pain; J44.9 Chronic obstructive pulmonary disease, unspecified; E11.9 Type 2 diabetes mellitus without complications; I11.0 Hypertensive heart disease with heart failure; F17.210 Nicotine dependence, cigarettes, uncomplicated; Z79.82 Long term (current) use of aspirin; Z79.51 Long term (current) use of inhaled steroids; Z79.4 Long term (current) use of insulin; Z85.72 Personal history of non-Hodgkin lymphomas
CPT/HCPCS: J1170; J1940; J2405; J2543; Q9967

== ENCOUNTER 2019-05-09 20:16 | Emergency (ER) | payer MEDICARE, MEDICAID ==
[~2019-05-09] VITALS: Ht 198.1 cm; Wt 104.5 kg
[~2019-05-09 20:16] MED LIST changes: +LASIX 80MG TABL80 MG PO; +PHARMASSURE ZIN50 MG PO; +VITAMINC1000TA PO
[2019-05-09 20:19] VITALS: BP 103/64; TEMP 98
[2019-05-09 20:55] LABS: BASO % 0.4 % (0.0-2.0); EOS # 0.1 (0.0-0.7); EOS % 0.9 % (0-4.0); GRAN # 5.5 (1.4-6.5); GRAN % 58.3 % (42.2-75.2); HEMATOCRIT 41.9 % (42.0-52.0); HEMOGLOBIN 13.8 g/dl (13.5-18.0); LYMPH # 3.2 (1.2-3.4); LYMPH % 33.6 % (20.0-51.0); MEAN CELL VOLUME 83 fl (80.0-100.0); MEAN CORPUSCULAR HEMOGLOBIN 27 pg (27.0-31.0); MEAN CORPUSCULAR HGB CONC 33 g/dl (33.0-37.0); MEAN PLATELET VOLUME 8.8 fl (7.4-10.4); MONO # 0.6 (0.1-0.6); MONO % 6.6 % (1.7-9.3); PLATELET COUNT 205 K/mm3 (130-400); RED BLOOD COUNT 5.06 M/mm3 (4.20-5.60); REDCELL DISTRIBUTION WIDTH-CV 19.7 % (11.5-14.5)
[2019-05-09 21:08] LABS: ALANINE AMINOTRANSFERASE 50 U/L (21-72); ALBUMIN 4.4 gm/dL (3.5-5.0); ALKALINE PHOSPHATASE 91 U/L (50-136); ANION GAP 10 mmol/L (7-16); AST,SGOT 80 U/L (15-37); BLOOD UREA NITROGEN 23 mg/dL (9-20); CALCIUM 9.2 mg/dL (8.4-10.2); CARBON DIOXIDE 32 mmol/L (22-30); CHLORIDE 95 mmol/L (98-107); CREATININE, serum 0.92 (0.66-1.25); GLUCOSE 140 mg/dL (74-106); POTASSIUM 3.9 mmol/L (3.4-5.0); SODIUM 136 mmol/L (137-145)
[2019-05-09 21:09] LABS: ACETAMINOPHEN < 10 ug/mL (10-30); ALCOHOL(ethanol),MEDICAL < 10 mg/dL; SALICYLATE < 1.0 mg/dL
[2019-05-09 21:14] LABS: COLLECTION METHOD CLEAN CATCH
[2019-05-09 21:19] LABS: PH 7 (5-8); SQUAMOUS EPITHELIAL 0-2 /hpf; URINE APPEARANCE Clear; URINE BACTERIA None Seen /hpf; URINE BILIRUBIN Negative (NEGATIVE); URINE BLOOD Negative (NEGATIVE); URINE COLOR Yellow; URINE GLUCOSE Negative (NEGATIVE); URINE KETONE Negative (NEGATIVE); URINE LEUKOCYTE ESTERASE Negative (NEGATIVE); URINE NITRATE Negative (NEGATIVE); URINE PROTEIN(semi-quant) Negative (NEGATIVE); URINE RBC None Seen /hpf; URINE UROBILINOGEN Negative (NEGATIVE)
[2019-05-09 21:27] LABS: TRICYCLIC ANTIDEPRESS URINE NEGATIVE
[2019-05-10 12:20] VITALS: PULSE 81
== END 2019-05-10 12:20 | disposition home or self-care (01) ==
LOC: COL.ER 20:16
PROVIDERS: Emergency Medicine
DX: R45.851 Suicidal ideations (principal); F29 Unspecified psychosis not due to a substance or known physiological condition; F15.10 Other stimulant abuse, uncomplicated; E11.9 Type 2 diabetes mellitus without complications; I10 Essential (primary) hypertension; J44.9 Chronic obstructive pulmonary disease, unspecified; F17.210 Nicotine dependence, cigarettes, uncomplicated; Z79.4 Long term (current) use of insulin; Z79.82 Long term (current) use of aspirin; Z85.72 Personal history of non-Hodgkin lymphomas; Z95.0 Presence of cardiac pacemaker

== ENCOUNTER 2019-06-27 17:11 | Emergency (ER) | payer MEDICARE, MEDICAID ==
[~2019-06-27] VITALS: Ht 198.1 cm; Wt 150.5 kg
[2019-06-27 17:16] VITALS: BP 129/74; TEMP 97.2
[2019-06-27] MEDS ORDERED: PRINIVIL2.5 MG PO (17:32)
[2019-06-27] MEDS ORDERED: XARELTO10 MG PO (17:32)
[2019-06-27] MEDS ORDERED: KLONOPIN2 MG PO (17:32)
[2019-06-27] MEDS ORDERED: PLAVIX 300MG T300 MG PO (17:33)
[2019-06-27] MEDS ORDERED: LIPITOR 10MG10 MG PO (17:34)
[2019-06-27] MEDS ORDERED: DAZIDOX10 MG PO (17:35)
[2019-06-27] MEDS ORDERED: CEPHALEXIN500 M1 PO (17:56)
[2019-06-27 18:18] VITALS: PULSE 114
== END 2019-06-27 18:17 | disposition home or self-care (01) ==
LOC: COL.ER 17:11
DX: L02.413 Cutaneous abscess of right upper limb (principal); I50.9 Heart failure, unspecified; G89.29 Other chronic pain; Z79.52 Long term (current) use of systemic steroids; Z79.899 Other long term (current) drug therapy; Z79.82 Long term (current) use of aspirin; Z79.4 Long term (current) use of insulin; Z79.51 Long term (current) use of inhaled steroids

== ENCOUNTER 2019-07-23 22:49 | Inpatient (IN) | payer MEDICARE, MEDICAID ==
[~2019-07-23] VITALS: Ht 198.1 cm; Wt 148.6 kg
[~2019-07-23 22:49] MED LIST changes: +LIPITOR 10MG10 MG PO; +PLAVIX 300MG T300 MG PO; +PRINIVIL2.5 MG PO; +XARELTO10 MG PO
[2019-07-23 23:34] LABS: BASO % 0.5 % (0.0-2.0); EOS # 0.2 (0.0-0.7); EOS % 1.9 % (0-4.0); GRAN # 5.2 (1.4-6.5); GRAN % 63.8 % (42.2-75.2); HEMATOCRIT 37.7 % (42.0-52.0); LYMPH # 2.2 (1.2-3.4); LYMPH % 26.9 % (20.0-51.0); MEAN CELL VOLUME 94 fl (80.0-100.0); MEAN CORPUSCULAR HEMOGLOBIN 30 pg (27.0-31.0); MEAN CORPUSCULAR HGB CONC 32 g/dl (33.0-37.0); MEAN PLATELET VOLUME 8.7 fl (7.4-10.4); MONO # 0.5 (0.1-0.6); MONO % 6.4 % (1.7-9.3); PLATELET COUNT 250 K/mm3 (130-400); RED BLOOD COUNT 4.02 M/mm3 (4.20-5.60); REDCELL DISTRIBUTION WIDTH-CV 15.5 % (11.5-14.5)
[2019-07-23 23:41] LABS: PARTIAL THROMBOPLASTIN TIME 22.7 SECONDS (26.0-37.0)
[2019-07-23 23:54] LABS: ALBUMIN 4.3 gm/dL (3.5-5.0); BILIRUBIN,TOTAL 0.8 mg/dL (0.0-1.0); CALCIUM 8.9 mg/dL (8.4-10.2); CREATININE, serum 0.81 (0.66-1.25); POTASSIUM 4.5 mmol/L (3.4-5.0)
[2019-07-24] VITALS (1078 sets, daily range): BP systolic 93–115; BP diastolic 46–68; PULSE 86–95; TEMP 97.1–102.1; O2SAT 39–100
[2019-07-24 00:05] LABS: TROPONIN-I 0.022 ng/mL (0.000-0.035)
[2019-07-24 00:19] LABS: ARTERIAL BLD GAS O2 SATURATION 93.7 % (92-100); ARTERIAL BLD GAS TCO2 CT 34.2; ARTERIAL BLOOD GAS BASE EXCESS 4.9 (-2-2); ARTERIAL BLOOD GAS HCO3 32.3 meq/L (22-26); ARTERIAL BLOOD GAS PCO2 61.3 mmHg (35-45); ARTERIAL BLOOD GAS PO2 73.4 mmHg (80-100); ARTERIAL BLOOD GAS pH 7.34 (7.35-7.45)
--- NOTE | 2019-07-24 03:26 | NUR ---
PT HAS CPAP ORDERED HOWEVER PT NOT IN NEGATIVE PRESSURE ROOM, THEREFORE CANNOT BE GIVEN A CPAP OR PERFOROMIST.
--- NOTE | 2019-07-24 07:30 | NUR ---
Report received from ABIODUN Landon. collection systems administrator nurse has helped him substantially throughout night and pt now in bed rsting with eyes closed. Will continue to monitor.
--- NOTE | 2019-07-24 07:43 | NUR ---
prn ACWTAMINOPHEN ADMIN FOR TEMP 102.1
--- NOTE | 2019-07-24 09:00 | NUR ---
Assessment charted. PT in bed resting with eyes closed, upon entry states pain is 8/10 all over and would like pain medication but pt is falling asleep often while talking, will provide pt pain medication when appropriate. PT Needs PICC line, called PICC team and notified. Pt resting, will continue ot monitor.
[2019-07-24 11:34] LABS: BASO % 0.6 % (0.0-2.0); EOS # 0.2 (0.0-0.7); EOS % 3.2 % (0-4.0); GRAN # 3.9 (1.4-6.5); GRAN % 55.7 % (42.2-75.2); HEMOGLOBIN 11.4 g/dl (13.5-18.0); LYMPH # 2.3 (1.2-3.4); LYMPH % 32.9 % (20.0-51.0); MEAN CELL VOLUME 95 fl (80.0-100.0); MEAN CORPUSCULAR HEMOGLOBIN 30 pg (27.0-31.0); MEAN CORPUSCULAR HGB CONC 31 g/dl (33.0-37.0); MEAN PLATELET VOLUME 8.8 fl (7.4-10.4); MONO # 0.5 (0.1-0.6); MONO % 7.2 % (1.7-9.3); PLATELET COUNT 209 K/mm3 (130-400); RED BLOOD COUNT 3.86 M/mm3 (4.20-5.60); REDCELL DISTRIBUTION WIDTH-CV 15.6 % (11.5-14.5)
[2019-07-24 11:41] LABS: HEMATOCRIT 36.6 % (42.0-52.0)
--- NOTE | 2019-07-24 11:41 | NUR ---
SW contacted the patient to discuss discharge plan. The patient is on COVID precautions. The patient lives alone in [place]. He states that a friend has been staying with him lately. He reports independence with ADLs and has a cane and walker. The patient's PCP is Dr. Helder Bates and he receives his medications at [facility]. He reports no difficulties obtaining his meds. The patient does not have advanced directives completed. He is not and has three children under the age of 18. He reports that his next of kin would be his mother, Ary Cheney. He does not have a phone number for her. The patient plans to return back home upon discharge. He reports that he will need transport back home. The patient is pending COVID results. SW to continue to follow.
[2019-07-24 11:45] LABS: BILIRUBIN,TOTAL 0.7 mg/dL (0.0-1.0); CALCIUM 8.8 mg/dL (8.4-10.2); CREATININE, serum 0.74 (0.66-1.25); POTASSIUM 4.3 mmol/L (3.4-5.0); TOTAL PROTEIN 7.5 gm/dL (6.4-8.2)
[2019-07-24 11:56] LABS: TROPONIN-I 6 HR POST INITIAL 0.019 ng/mL (0.000-0.034)
[2019-07-24 12:09] LABS: D-DIMER < 200.00 ng/mLDDu (200-230)
[2019-07-24 12:14] LABS: TSH w REFLEX 2.02 uIU/mL (0.465-4.680)
--- NOTE | 2019-07-24 13:30 | NUR ---
Called dr. Coppola and relayed pts c/o pain needs not being met. Pt continues to have somnolence in room and is asleep upon entry but rates pain at 9/10. Discussed next available pain medication and conitnue to monitor.
--- NOTE | 2019-07-24 17:45 | NUR ---
Pt has been sleeping off and on most of day, eatng well, has trouble keeping fluid restriction in place. Pain continues to be at 8/10, even when sleeping. Will give shift report to nightshift nurse who will resume care.
--- NOTE | 2019-07-24 20:02 | NUR ---
pt's mom Ary called and updated, all questions answered and requesting to have pt call him. will give number to pt.
[2019-07-24 21:20] LABS: COLLECTION METHOD CLEAN CATCH
[2019-07-24 21:31] LABS: MUCOUS Present /lpf; PH 6 (5-8); SQUAMOUS EPITHELIAL None Seen /hpf; URINE APPEARANCE Clear; URINE BACTERIA None Seen /hpf; URINE BILIRUBIN Negative (NEGATIVE); URINE BLOOD Negative (NEGATIVE); URINE COLOR Yellow; URINE GLUCOSE Negative (NEGATIVE); URINE KETONE Negative (NEGATIVE); URINE LEUKOCYTE ESTERASE Negative (NEGATIVE); URINE NITRATE Negative (NEGATIVE); URINE PROTEIN(semi-quant) 1+ (NEGATIVE); URINE RBC None Seen /hpf
[2019-07-24 21:44] LABS: TRICYCLIC ANTIDEPRESS URINE NEGATIVE
--- NOTE | 2019-07-24 22:45 | NUR ---
PT COMPLAINING OF PAIN 10/10 AT HIS BACK RADIATING TO TAILBONE, PT WAS GIVEN PRN ROXICODONE WITHOUT REPORTS OF RELIEF. VSS. PT AWAKE AND ORIENTED, ABLE TO SIT IN COMMODE WITH STANDBY ASSIST. NO SIGN OF DISTRESS NOTED. PRN TYLENOL OFFERED AND PT WILLING TO TRY AND ALSO REQUESTED KLONOPIN AND TUMS. DR. ALEMAN CALLED AND NOTIFIED, NO NEW ORDERS GIVEN AT THIS TIME PT WAS SOMNOLENT DURING DAY TIME. WILL GIVE PRN MED UPON PT'S REQUEST AND WHEN AVAILABLE. WILL CONTINUE TO MONITOR.
[2019-07-25] VITALS (1174 sets, daily range): BP systolic 95–105; BP diastolic 53–88; PULSE 89–102; TEMP 97–98.2; O2SAT 57–100
--- NOTE | 2019-07-25 07:30 | NUR ---
Bedside shift report received from ABIODUN Ventura. Patient awake, alert, and responds appropriately. Full assessment completed. Vital signs stable. Bed in lowest position, side rails up x2, call light and personal items within reach. Patient has "generalized pain" at this time 12/29. Patient educated that his next dose of pain medication is not due until 929. Patient verbalized understanding. Patient has no other complaints or concerns at this time.
--- NOTE | 2019-07-25 07:44 | NUR ---
REPORT GIVEN TO ABIODUN KOROMA.
[2019-07-25 10:06] LABS: CALCIUM 8.8 mg/dL (8.4-10.2); CREATININE, serum 0.77 (0.66-1.25); POTASSIUM 4.1 mmol/L (3.4-5.0)
[2019-07-25 10:09] LABS: HEMOGLOBIN 11.5 g/dl (13.5-18.0); MEAN CELL VOLUME 95 fl (80.0-100.0); MEAN CORPUSCULAR HEMOGLOBIN 30 pg (27.0-31.0); MEAN CORPUSCULAR HGB CONC 32 g/dl (33.0-37.0); MEAN PLATELET VOLUME 8.9 fl (7.4-10.4); PLATELET COUNT 215 K/mm3 (130-400); REDCELL DISTRIBUTION WIDTH-CV 15.6 % (11.5-14.5)
[2019-07-25 10:21] LABS: BAND 1 % (0-10); EOSINOPHIL 5 % (0-4); LYMPHOCYTE 38 % (20.0-51.0); NEUTROPHILS 48 % (42.0-75.2); PLATELET ESTIMATE NORMAL (NORMAL)
--- NOTE | 2019-07-25 19:20 | NUR ---
Bedside shift report given to ABIODUN Ward. Patient has had no acute changes, vital signs stable. Care handed over at this time.
[2019-07-26] VITALS (712 sets, daily range): BP systolic 80–113; BP diastolic 29–90; PULSE 72–102; TEMP 97.3–97.9; O2SAT 61–100
--- NOTE | 2019-07-26 01:07 | NUR ---
Contacted Dr. Coppola regarding patient's persistent complaints of pain unreleived by PRN oxycodone and tylenol. Patient continues to report increasing anxiety despite klonopin adminstered at shift change. Vitals have remained within normal limits, HR 80-90s with last BP being 100/62. Dr. Coppola stated he did not wish to administer additional narcotics or benzos at this time. He did, however, provide an order for a one-time dose of Ketorolac, but stated the patient had refused Ketorolac earlier today following his rounds. Discussed Ketorolac with patient; he does not think the medication will help his pain. Offered the patient a warm blanket/ice pack, repositioning, and altered lighting, to which the patient refused. Staff at bedside for roughly 15-20 minutes allowing patient to express specific concerns causing anxiety. At this time, patient's vitals remain within normal limits. He states he does not feel any releif from pain or anxiety. Requests a snack and that PRN oxycodone be administered when due. Will provide snack and continue to monitor.
[2019-07-26 05:34] LABS: BASO % 0.7 % (0.0-2.0); EOS # 0.2 (0.0-0.7); EOS % 2.5 % (0-4.0); GRAN # 2.8 (1.4-6.5); GRAN % 47.9 % (42.2-75.2); HEMOGLOBIN 11.4 g/dl (13.5-18.0); LYMPH # 2.4 (1.2-3.4); LYMPH % 41.1 % (20.0-51.0); MEAN CELL VOLUME 95 fl (80.0-100.0); MEAN CORPUSCULAR HEMOGLOBIN 30 pg (27.0-31.0); MEAN CORPUSCULAR HGB CONC 32 g/dl (33.0-37.0); MEAN PLATELET VOLUME 8.7 fl (7.4-10.4); MONO # 0.5 (0.1-0.6); MONO % 7.6 % (1.7-9.3); PLATELET COUNT 181 K/mm3 (130-400); RED BLOOD COUNT 3.79 M/mm3 (4.20-5.60); REDCELL DISTRIBUTION WIDTH-CV 15.3 % (11.5-14.5)
[2019-07-26 05:42] LABS: HEMATOCRIT 35.8 % (42.0-52.0)
[2019-07-26 05:49] LABS: CALCIUM 8.8 mg/dL (8.4-10.2); CREATININE, serum 0.75 (0.66-1.25); POTASSIUM 4.4 mmol/L (3.4-5.0)
--- NOTE | 2019-07-26 07:37 | NUR ---
Notified Dr. Coppola of negative COVID result.
--- NOTE | 2019-07-26 08:27 | NUR ---
Assessment completed, alert/oriented, vital signs stable/ afebrile, reports his breathing feels easier today, his COVID screeen came back negative and we have notified hospitalist , heart RRR/distal pulses are palpable, 2+ edema to LLE, lungs CTA/ diminished in bases, he is sitting at edge of bed eating breakfast, morning meds given, patient continues to report chronic low back/ right hip pain, he denies other needs this morning
--- NOTE | 2019-07-26 09:00 | NUR ---
PICC intact right upper arm with large amount of dried reddish drainage noted. with sterile technique right upper arm PICC dressing change done with insertion site cleansed with chloraprep x 1, chlorhexidine impregnated disk applied, skin prpe, stat lock, and tegaderm applied. no further drainage noted. no signs or symptoms of IV complications noted. no concerns voiced. re-wrapped with pranav to protect catheter.
--- NOTE | 2019-07-26 14:20 | NUR ---
Pt arrives to medical unit rm 309 from [facility] via WC accompanied by ABIDOUN Bear. Pt A&O x 4, requesting snacks and a shower. Pt denies pain at this time. PICC to right upper arm without s/s of complications. No further needs reported. Call light in reach.
--- NOTE | 2019-07-26 14:30 | NUR ---
Patient is transferring to Medical room 309, I have given report to receiving nurse ABIODUN Angulo, patient transported via wheelchair at this time
--- NOTE | 2019-07-26 14:33 | NUR ---
The patient's COVID-19 results came back negative. The patient transferred up to the medical/surgical unit today. SW to continue to follow.
--- NOTE | 2019-07-26 16:47 | NUR ---
Pt resting with eyes closed upon this nurse entering room, awakens to light stimuli but remains drowsy, falling asleep during VS and blood glucose assessment. Pt reports pain has slightly improved, states "I'm mostly drowsy." BP low. Doctor notified. Orders received.
--- NOTE | 2019-07-26 19:45 | NUR ---
Patient assessed at this time. Alert and oriented x 4, and able to make needs known. Reports level 9 pain to back/right hip, throbbing. Given PRN Roxicodone per orders. Patient also given PRN Klonopin and Tums as requested. Double lumen PICC to RUE. Both lumens flushed. Dressing CDI. Adalberto wrap to area. Denies SOB and dyspena. LS CTA in upper lobes, diminished in lower lobes. Respirations even and unlabored. HRR. Telemetry in place. Capillary refill less than 3 seconds. Non-tenting skin turgor. BSAx4. Abdomen soft and non-tender. 2+ edema BLE. Scaling/flaking to bilateral feet. Voices no questions, needs, or concerns at this time. Resting in bed with call light within reach.
--- NOTE | 2019-07-26 21:15 | NUR ---
Patient rated pain to be at an 8 to back and right hip. Requested PRN APAP. Given as requested per orders. Voices no further questions, needs, or concerns at this time. Resting in bed with call light within reach.
--- NOTE | 2019-07-26 23:41 | NUR ---
Patient reported level 8 pain to back/right hip. Given PRN Oxycodone per orders.
[2019-07-27 04:08] VITALS: BP 105/76; PULSE 85; TEMP 97.3
--- NOTE | 2019-07-27 04:17 | NUR ---
Patient given PRN Oxicodone as requested for pain at this time.
--- NOTE | 2019-07-27 05:48 | NUR ---
Patient has complained of pain throughout the night. Has been taking PRN Oxycodone 10 mg po Q4H PRN for pain. Voices no further questions, needs, or concerns at this time. Resting in bed with call light within reach.
[2019-07-27 06:14] LABS: BASO # 0.1 (0.0-0.2); BASO % 0.9 % (0.0-2.0); EOS # 0.2 (0.0-0.7); EOS % 2.8 % (0-4.0); GRAN # 2.7 (1.4-6.5); GRAN % 46.3 % (42.2-75.2); HEMOGLOBIN 10.7 g/dl (13.5-18.0); LYMPH # 2.4 (1.2-3.4); LYMPH % 42.2 % (20.0-51.0); MEAN CELL VOLUME 95 fl (80.0-100.0); MEAN CORPUSCULAR HEMOGLOBIN 30 pg (27.0-31.0); MEAN CORPUSCULAR HGB CONC 31 g/dl (33.0-37.0); MEAN PLATELET VOLUME 9.1 fl (7.4-10.4); MONO # 0.4 (0.1-0.6); MONO % 7.6 % (1.7-9.3); PLATELET COUNT 177 K/mm3 (130-400); REDCELL DISTRIBUTION WIDTH-CV 15.2 % (11.5-14.5)
[2019-07-27 06:19] LABS: HEMATOCRIT 34.2 % (42.0-52.0)
[2019-07-27 06:50] LABS: CALCIUM 8.9 mg/dL (8.4-10.2); CREATININE, serum 0.79 (0.66-1.25); POTASSIUM 4.2 mmol/L (3.4-5.0)
[2019-07-27 08:00] VITALS: BP 120/60; PULSE 108; TEMP 98.1
[2019-07-27] MEDS ORDERED: LEADER CLE17 GM/Dose PO (10:19)
--- NOTE | 2019-07-27 10:50 | NUR ---
PATIENT DC TO HOME VIA PRIVATE VEHICLE ACCOMPANIED BY FRIEND AT 1020. LEFT FLOOR IN WC ACCOMPANIED BY THIS NURSE. PRINTED DC INSTRUCTIONS REVIEWED WITH PATIENT. ALL QUESTIONS AND CONCERNS ADDRESSED DURING REVIEW.
== END 2019-07-27 10:40 | disposition home or self-care (01) | DRG 291 ==
LOC: COL.ER 22:49 → IMCU 07-24 00:14 → MEDICAL 07-26 14:51
PROVIDERS: Emergency Medicine; Physician Assistant; Student in an Organized Health Care Education/Training Program; ADMIT Internal Medicine
PROC: 02HV33Z Insertion of Infusion Device into Superior Vena Cava, Percutaneous Approach (ICD-10-PCS; principal; 2019-07-24)
DX: I11.0 Hypertensive heart disease with heart failure (principal); J96.01 Acute respiratory failure with hypoxia; J96.02 Acute respiratory failure with hypercapnia; J18.9 Pneumonia, unspecified organism; I47.1 Supraventricular tachycardia; J44.0 Chronic obstructive pulmonary disease with (acute) lower respiratory infection; I50.23 Acute on chronic systolic (congestive) heart failure; Z20.828 Contact with and (suspected) exposure to other viral communicable diseases; I25.10 Atherosclerotic heart disease of native coronary artery without angina pectoris; I48.0 Paroxysmal atrial fibrillation; D64.9 Anemia, unspecified; E11.9 Type 2 diabetes mellitus without complications; F32.9 Major depressive disorder, single episode, unspecified; F41.9 Anxiety disorder, unspecified; E78.5 Hyperlipidemia, unspecified; F17.200 Nicotine dependence, unspecified, uncomplicated; I42.9 Cardiomyopathy, unspecified; E66.01 Morbid (severe) obesity due to excess calories; F17.210 Nicotine dependence, cigarettes, uncomplicated; G89.29 Other chronic pain; Z85.71 Personal history of Hodgkin lymphoma; Z92.21 Personal history of antineoplastic chemotherapy; Z79.82 Long term (current) use of aspirin; Z86.14 Personal history of Methicillin resistant Staphylococcus aureus infection; Z95.810 Presence of automatic (implantable) cardiac defibrillator
CPT/HCPCS: 99223-AI; 99232-AI; 99233-AI; 99239; C1751; J0456; J0696; J1644; J1815; J1940; J7030; J7050

== ENCOUNTER 2019-08-04 09:50 | Emergency (ER) | payer MEDICARE, MEDICAID ==
[~2019-08-04] VITALS: Ht 198.1 cm; Wt 154.5 kg
[~2019-08-04 09:50] MED LIST changes: +LEADER CLE17 GM/Dose PO
[2019-08-04 09:57] VITALS: TEMP 97.8
[2019-08-04 11:55] LABS: BASO # 0.1 (0.0-0.2); BASO % 0.9 % (0.0-2.0); EOS # 0.2 (0.0-0.7); GRAN # 5.8 (1.4-6.5); GRAN % 56.7 % (42.2-75.2); HEMATOCRIT 40.4 % (42.0-52.0); HEMOGLOBIN 12.9 g/dl (13.5-18.0); LYMPH # 3.5 (1.2-3.4); LYMPH % 34.5 % (20.0-51.0); MEAN CELL VOLUME 94 fl (80.0-100.0); MEAN CORPUSCULAR HEMOGLOBIN 30 pg (27.0-31.0); MEAN CORPUSCULAR HGB CONC 32 g/dl (33.0-37.0); MEAN PLATELET VOLUME 8.7 fl (7.4-10.4); MONO # 0.6 (0.1-0.6); MONO % 5.6 % (1.7-9.3); PLATELET COUNT 208 K/mm3 (130-400); RED BLOOD COUNT 4.31 M/mm3 (4.20-5.60); REDCELL DISTRIBUTION WIDTH-CV 14.7 % (11.5-14.5)
[2019-08-04 12:14] LABS: ALANINE AMINOTRANSFERASE 52 U/L (4-49); ALBUMIN 4.7 gm/dL (3.5-5.0); ALKALINE PHOSPHATASE 62 U/L (50-136); ANION GAP 10 mmol/L (7-16); AST,SGOT 55 U/L (15-37); BILIRUBIN,TOTAL 0.5 mg/dL (0.0-1.0); BLOOD UREA NITROGEN 30 mg/dL (9-20); CALCIUM 8.9 mg/dL (8.4-10.2); CARBON DIOXIDE 29 mmol/L (22-30); CHLORIDE 96 mmol/L (98-107); CREATININE, serum 0.83 (0.66-1.25); GLUCOSE 220 mg/dL (74-106); POTASSIUM 4.1 mmol/L (3.4-5.0); SODIUM 135 mmol/L (137-145); TOTAL PROTEIN 8.5 gm/dL (6.4-8.2)
[2019-08-04 12:15] LABS: C-REACTIVE PROTEIN < 0.5 mg/dL (0.0-0.9)
[2019-08-04 12:23] LABS: TROPONIN-I 0.021 ng/mL (0.000-0.035)
[2019-08-04] MEDS ORDERED: KAPSPARGO SPRIN25 MG PO (13:36)
[2019-08-04 15:27] VITALS: BP 94/68; PULSE 87
== END 2019-08-04 15:35 | disposition home or self-care (01) ==
LOC: COL.ER 09:50
PROVIDERS: Physician Assistant
DX: R06.02 Shortness of breath (principal); R07.9 Chest pain, unspecified; I25.10 Atherosclerotic heart disease of native coronary artery without angina pectoris; E11.9 Type 2 diabetes mellitus without complications; I11.0 Hypertensive heart disease with heart failure; I50.9 Heart failure, unspecified; I42.9 Cardiomyopathy, unspecified; E78.5 Hyperlipidemia, unspecified; F41.8 Other specified anxiety disorders; F17.210 Nicotine dependence, cigarettes, uncomplicated; Z79.4 Long term (current) use of insulin; Z79.01 Long term (current) use of anticoagulants; Z79.82 Long term (current) use of aspirin; Z79.51 Long term (current) use of inhaled steroids
CPT/HCPCS: J2270; J2405

== ENCOUNTER 2019-08-07 12:04 | Outpatient (CLI) | payer MEDICARE, MEDICAID ==
[~2019-08-07] VITALS: Ht 198.1 cm; Wt 103.5 kg
[~2019-08-07 12:04] MED LIST changes: +KAPSPARGO SPRIN25 MG PO
[2019-08-07 12:21] VITALS: BP 105/65; PULSE 81
[2019-08-07 13:39] VITALS: BP 85/58; PULSE 82
[2019-08-07 13:45] VITALS: BP 85/58; BP 90/42; PULSE 80; PULSE 83
[2019-08-07 13:55] VITALS: BP 99/74; PULSE 89
[2019-08-07 14:10] VITALS: BP 102/74; PULSE 88
[2019-08-07 14:25] VITALS: BP 98/65; PULSE 82
--- NOTE | 2019-08-07 15:05 | NUR ---
Discharge instructions given to pt.Pt verbalizes understanding.Pt escorted out via wheelchair by this nurse.
== END 2019-08-07 15:23 | disposition home or self-care (01) ==
LOC: COL.RAD 12:04
DX: M47.26 Other spondylosis with radiculopathy, lumbar region (principal); M51.16 Intervertebral disc disorders with radiculopathy, lumbar region; M48.061 Spinal stenosis, lumbar region without neurogenic claudication; M43.16 Spondylolisthesis, lumbar region
CPT/HCPCS: Q9965

== ENCOUNTER 2019-08-27 00:40 | Emergency (ER) | payer MEDICARE, MEDICAID ==
[~2019-08-27] VITALS: Ht 198.1 cm; Wt 157.3 kg
[~2019-08-27 00:40] MED LIST changes: -LIPITOR 10MG10 MG PO; +MASON NATURAL2000 IU PO; -VITAMIN D31000 I1 PO; -XARELTO10 MG PO
[2019-08-27 00:43] VITALS: TEMP 96.4
[2019-08-27 01:41] LABS: BASO % 0.5 % (0.0-2.0); EOS # 0.1 (0.0-0.7); EOS % 1.5 % (0-4.0); GRAN # 4.5 (1.4-6.5); GRAN % 50.3 % (42.2-75.2); HEMATOCRIT 44.3 % (42.0-52.0); HEMOGLOBIN 13.7 g/dl (13.5-18.0); LYMPH # 3.6 (1.2-3.4); LYMPH % 40.8 % (20.0-51.0); MEAN CELL VOLUME 92 fl (80.0-100.0); MEAN CORPUSCULAR HEMOGLOBIN 29 pg (27.0-31.0); MEAN CORPUSCULAR HGB CONC 31 g/dl (33.0-37.0); MEAN PLATELET VOLUME 9.3 fl (7.4-10.4); MONO # 0.6 (0.1-0.6); MONO % 6.7 % (1.7-9.3); PLATELET COUNT 175 K/mm3 (130-400); RED BLOOD COUNT 4.81 M/mm3 (4.20-5.60); REDCELL DISTRIBUTION WIDTH-CV 14.1 % (11.5-14.5)
[2019-08-27 01:54] LABS: ALBUMIN 4.1 gm/dL (3.5-5.0); BILIRUBIN,TOTAL 0.6 mg/dL (0.0-1.0); CALCIUM 8.6 mg/dL (8.4-10.2); CREATININE, serum 1.09 (0.66-1.25); POTASSIUM 4.5 mmol/L (3.4-5.0); TOTAL PROTEIN 7.9 gm/dL (6.4-8.2)
[2019-08-27 02:04] LABS: TROPONIN-I 0.025 ng/mL (0.000-0.035)
[2019-08-27 05:45] VITALS: BP 132/70; PULSE 88
[2019-08-30] VITALS (340 sets, daily range): O2SAT 82–100
== END 2019-08-27 04:45 | disposition home or self-care (01) ==
LOC: COL.ER 00:40
PROVIDERS: Nurse Practitioner
DX: R07.89 Other chest pain (principal); I11.0 Hypertensive heart disease with heart failure; I50.9 Heart failure, unspecified; E78.5 Hyperlipidemia, unspecified; J44.9 Chronic obstructive pulmonary disease, unspecified; E11.9 Type 2 diabetes mellitus without complications; F17.210 Nicotine dependence, cigarettes, uncomplicated; Z79.4 Long term (current) use of insulin; Z79.82 Long term (current) use of aspirin; Z79.51 Long term (current) use of inhaled steroids; Z95.0 Presence of cardiac pacemaker

== ENCOUNTER 2019-08-30 10:13 | Day surgery (SDC) | payer MEDICARE, MEDICAID ==
[~2019-08-30] VITALS: Ht 198.1 cm; Wt 165.3 kg
[2019-08-30] VITALS (210 sets, daily range): BP systolic 101–118; BP diastolic 62–79; PULSE 69–88; TEMP 97.9–98.7; O2SAT 80–100
[2019-08-30 11:15] LABS: HEMATOCRIT 42.5 % (42.0-52.0); HEMOGLOBIN 13.7 g/dl (13.5-18.0); MEAN CELL VOLUME 91 fl (80.0-100.0); MEAN CORPUSCULAR HEMOGLOBIN 29 pg (27.0-31.0); MEAN CORPUSCULAR HGB CONC 32 g/dl (33.0-37.0); PLATELET COUNT 167 K/mm3 (130-400); RED BLOOD COUNT 4.68 M/mm3 (4.20-5.60); REDCELL DISTRIBUTION WIDTH-CV 14.2 % (11.5-14.5)
[2019-08-30] MEDS ORDERED: KAPSPARGO SPRIN25 MG PO (11:20)
[2019-08-30] MEDS ORDERED: RESTORIL30 MG PO (11:26)
[2019-08-30] MEDS ORDERED: ALDACTONE 25MG25 M1 PO (11:27)
[2019-08-30] MEDS ORDERED: ABILIFY 10MG TA10 MG PO (11:28)
[2019-08-30 11:29] LABS: INR 1.1 (0.8-3.0)
[2019-08-30] MEDS ORDERED: TRILEPTAL 300M300 MG PO (11:29)
[2019-08-30] MEDS ORDERED: REMERON30 MG PO (11:30)
[2019-08-30 11:32] LABS: PARTIAL THROMBOPLASTIN TIME 30.8 SECONDS (26.0-37.0)
[2019-08-30 11:33] LABS: CALCIUM 9.3 mg/dL (8.4-10.2); CREATININE, serum 0.79 (0.66-1.25); POTASSIUM 4.4 mmol/L (3.4-5.0)
--- NOTE | 2019-08-30 12:20 | NUR ---
SEE MERGE DOCUMENTATION FOR MEDICATION ADMINISTRATION TIMES AND INTRA/POST PROCEDURE SEDATION ASSESSMENTS. RIGHT HAND BARBEAU TEST POSITIVE.
--- NOTE | 2019-08-30 13:45 | NUR ---
Received report from ABIODUN Burgos.
--- NOTE | 2019-08-30 13:55 | NUR ---
Received patient from ABIODUN Burgos. Patient is stable and resting in bed. Call light and bedside table are within reach. Will continue to monitor patient throughout shift.
--- NOTE | 2019-08-30 15:55 | NUR ---
Patient became irritated because he could not eat and admitted to pulling his blood pressure cuff off.
--- NOTE | 2019-08-30 19:15 | NUR ---
RECEIVED REPORT FROM ABIODUN HU. PT SITTING UP IN BED FINISHING UP DINNER. PT ON RA. VSS. CALL LIGHT WITHIN REACH.
[2019-08-31] VITALS (436 sets, daily range): BP systolic 95–106; BP diastolic 68–71; PULSE 77–84; TEMP 97.7–98.2; O2SAT 89–99
[2019-08-31] MEDS ORDERED: PLAVIX 75MG TAB75 MG PO (07:45)
[2019-08-31] MEDS ORDERED: LASIX 20MG TABL20 MG PO (07:47)
[2019-08-31] MEDS ORDERED: LASIX 40MG TABL40 MG PO (07:47)
--- NOTE | 2019-08-31 09:40 | NUR ---
Patient assisted to wheelchair and transferred to POV driven by his friend. Patient states he has all belongings on his person and feels all his questions were answered about discharge and follow-up. Patient stable, IV removed.
== END 2019-08-31 09:42 | disposition home or self-care (01) ==
LOC: COL.CAR 10:13 → ICU 15:08 → COL.CAR 08-31 09:42
PROVIDERS: Internal Medicine Cardiovascular Disease
DX: I25.10 Atherosclerotic heart disease of native coronary artery without angina pectoris (principal); I11.0 Hypertensive heart disease with heart failure; I50.22 Chronic systolic (congestive) heart failure; I48.92 Unspecified atrial flutter; I48.91 Unspecified atrial fibrillation; I77.810 Thoracic aortic ectasia; I08.1 Rheumatic disorders of both mitral and tricuspid valves; E78.5 Hyperlipidemia, unspecified; E11.9 Type 2 diabetes mellitus without complications; E66.9 Obesity, unspecified; Z79.899 Other long term (current) drug therapy; Z91.19 Patient's noncompliance with other medical treatment and regimen; Z79.01 Long term (current) use of anticoagulants; Z79.4 Long term (current) use of insulin; Z95.810 Presence of automatic (implantable) cardiac defibrillator
CPT/HCPCS: OP; C1725; C1769; C1874; C1887; C9600; J1644; J1815; J1940; J2250; J3010; Q9967

== ENCOUNTER 2019-11-28 14:22 | Inpatient (IN) | payer MEDICARE, MEDICAID ==
[~2019-11-28] VITALS: Ht 198.1 cm; Wt 167.1 kg
[~2019-11-28 14:22] MED LIST changes: +ABILIFY 10MG TA10 MG PO; +ALDACTONE 25MG25 M1 PO; +REMERON30 MG PO; +RESTORIL30 MG PO; +TRILEPTAL 300M300 MG PO
[2019-11-28 15:12] LABS: BASO % 0.4 % (0.0-2.0); EOS # 0.1 (0.0-0.7); EOS % 0.9 % (0-4.0); GRAN # 4.7 (1.4-6.5); HEMATOCRIT 40.9 % (42.0-52.0); HEMOGLOBIN 13.2 g/dl (13.5-18.0); LYMPH # 2.1 (1.2-3.4); LYMPH % 28.3 % (20.0-51.0); MEAN CELL VOLUME 89 fl (80.0-100.0); MEAN CORPUSCULAR HEMOGLOBIN 29 pg (27.0-31.0); MEAN CORPUSCULAR HGB CONC 32 g/dl (33.0-37.0); MEAN PLATELET VOLUME 8.9 fl (7.4-10.4); MONO # 0.5 (0.1-0.6); MONO % 7.1 % (1.7-9.3); PLATELET COUNT 192 K/mm3 (130-400); REDCELL DISTRIBUTION WIDTH-CV 14.4 % (11.5-14.5)
[2019-11-28 15:21] LABS: INR 1.1 (0.8-3.0); PROTHROMBIN TIME 11.9 SECONDS (9.7-12.8)
[2019-11-28 15:24] LABS: ALBUMIN 3.7 gm/dL (3.5-5.0); BILIRUBIN,TOTAL 0.6 mg/dL (0.0-1.0); C-REACTIVE PROTEIN 5.3 mg/dL (0.0-0.9); CALCIUM 8.6 mg/dL (8.4-10.2); CREATININE, serum 0.67 (0.66-1.25); PARTIAL THROMBOPLASTIN TIME 35.5 SECONDS (26.0-37.0); POTASSIUM 3.9 mmol/L (3.4-5.0); TOTAL PROTEIN 7.2 gm/dL (6.4-8.2)
[2019-11-28 15:32] LABS: TROPONIN-I 0.015 ng/mL (0.000-0.035)
--- NOTE | 2019-11-28 18:32 | NUR ---
Vancomycin Initial Dosing Pharmacy Note Ordering provider: Gilberto Coppola MD Indication/duration: LUE ABSCESS/CELLULITIS, 7 DAYS LABS: SCr 0.67, CrCl~204, GFR 130 Recommendation: Start Vancomcyin 2 gm IV q8h. Pharmacy will continue to monitor and check a Vancomycin trough on 11/30/19. Loading dose: 2 grams Maintenance dose: 2 grams every 8 hours Trough goal: 10-15 ug/mL
[2019-11-28] MEDS ORDERED: DEMADEX100 MG PO (19:42)
[2019-11-28 20:07] LABS: COLLECTION METHOD CLEAN CATCH
[2019-11-28 20:16] LABS: MUCOUS Present /lpf; PH 5 (5-8); SQUAMOUS EPITHELIAL None Seen /hpf; URINE APPEARANCE Clear; URINE BACTERIA None Seen /hpf; URINE BILIRUBIN Negative (NEGATIVE); URINE BLOOD Negative (NEGATIVE); URINE COLOR Yellow; URINE GLUCOSE 3+ (NEGATIVE); URINE KETONE Negative (NEGATIVE); URINE LEUKOCYTE ESTERASE Negative (NEGATIVE); URINE NITRATE Positive (NEGATIVE); URINE PROTEIN(semi-quant) Negative (NEGATIVE); URINE UROBILINOGEN Negative (NEGATIVE)
[2019-11-28 20:20] LABS: TRICYCLIC ANTIDEPRESS URINE NEGATIVE
[2019-11-28 20:38] VITALS: BP 113/65; PULSE 94; TEMP 97.9
--- NOTE | 2019-11-28 21:00 | NUR ---
Admitted to surgical floor for left arm cellulitis- arm has some edema- wrapped with pranav wrap-dry and intact. Pt states pain 8/10-given roxicodone as ordered- pt states will need a stronger pain med tonight{takes roxicodone at home} also wants a nicotine patch tonight - given 2 sandwich boxes for supper- Tele on, went over med rec and Olamide HOOK notified of changes-
[2019-11-28 23:38] VITALS: BP 103/59; PULSE 91; TEMP 97.6
[2019-11-29] VITALS (8 sets, daily range): BP systolic 82–132; BP diastolic 50–87; PULSE 82–93; TEMP 97.9–98.9
--- NOTE | 2019-11-29 05:54 | NUR ---
Has slept fair during the night- left arm up on pillow, Tele on, was medicated during the night with Roxicodone and DIlaudid prn as ordered- on Contact precautions for HX of MRSA
--- NOTE | 2019-11-29 07:30 | NUR ---
Patient resting in bed at this time. Patient rouses with some effort, speech is appropriate but delayed and slurred. Patient requests PRN pain medication for pain in his left arm that he rates 8/10, informed patient that it was too soon for pain medication, will reassess at first oppertunity. Patient verbalized understanding and promptly fell back asleep. Dressing to left forearm is CDI, the area is still swollen, no discoloration is visible. CMS intact in fingers of left hand. BLE are edemetous with 2+ edema. Patient denies further needs, call light within reach.
[2019-11-29 07:54] LABS: BASO % 0.4 % (0.0-2.0); EOS # 0.1 (0.0-0.7); EOS % 1.6 % (0-4.0); GRAN # 3.3 (1.4-6.5); HEMATOCRIT 37.1 % (42.0-52.0); HEMOGLOBIN 12.2 g/dl (13.5-18.0); LYMPH # 2.7 (1.2-3.4); LYMPH % 40.4 % (20.0-51.0); MEAN CELL VOLUME 89 fl (80.0-100.0); MEAN CORPUSCULAR HEMOGLOBIN 29 pg (27.0-31.0); MEAN CORPUSCULAR HGB CONC 33 g/dl (33.0-37.0); MEAN PLATELET VOLUME 9.6 fl (7.4-10.4); MONO # 0.5 (0.1-0.6); PLATELET COUNT 161 K/mm3 (130-400); RED BLOOD COUNT 4.16 M/mm3 (4.20-5.60); REDCELL DISTRIBUTION WIDTH-CV 14.5 % (11.5-14.5)
[2019-11-29 07:56] LABS: CALCIUM 7.9 mg/dL (8.4-10.2); CREATININE, serum 0.63 (0.66-1.25); MAGNESIUM 1.6 mg/dL (1.6-2.3); POTASSIUM 3.9 mmol/L (3.4-5.0)
--- NOTE | 2019-11-29 16:49 | NUR ---
Heat Regulator contacted patient by phone to discuss discharge planning as he is in contact isolation. Patient lives in [place] with his girlfriend, Ann. Patient is not and has three children ages 17, 16, and 15. Patient states next of kin would be his mom, Ary Cheney. Patient states he does not have any phone numbers for family and that Ann does not have a phone at this time. Patient does not have Advance Directives. Patient sees Dr. Bates for primary care and obtains medications at [facility] with no difficulties. Patient states he has a ship/rec/doc control at [facility] who can provide him a ride home at discharge. Patient states he is supposed to be receiving therapy and medication management at [place]. SW addressed positive UDS for oxycodone, opiates, amphetamines, methamphetamines, benzodiazepines, and marijuana. Patient states he smokes marijuana and takes pain medication at home but denied methamphetamine use. Patient states he previously received outpatient treatment at [facility] and may be interested in drug and alcohol outpatient treatment at [facility]. Patient plans to return home at discharge. SW will continue to follow.
--- NOTE | 2019-11-29 18:52 | NUR ---
Patient has rested in bed for most of the day. Patient has remained alert and oriented while awake. Left arm elevated on a pillow and iced PRN. Patient has requested PRN pain medication at the earliest oppertunity but has not complained of pain in the interim. Patient eating dinner at this time, call light within reach.
--- NOTE | 2019-11-29 19:15 | NUR ---
Report received, assumed care for nightman. Assessment complete. VS stable. A&Ox3. Denies nausea/shortness of breath. C/O pain to left arm/back-described as aching-rating pain 6/10 on pain scale. Toradol given per dr order. Dressing to left [id number]-[id number]. Denies questions/concerns. Call light in reach. Will monitor
--- NOTE | 2019-11-29 19:45 | NUR ---
AFTER DISCUSSING WITH PATIENT THEY DO NOT WANT TO WEAR A CPAP WHILE HERE AND PREFER TO BE PUT ON OXYGEN FOR THE NIGHT. TOLD PATIENT IF THEY CHANGED THEIR MIND WE COULD ALWAYS GET ONE FOR THEM TO USE.
--- NOTE | 2019-11-29 23:32 | NUR ---
PATIENT WEARING 2L OF O2 WHILE SLEEPING AT [facility]. SPO2 98 HR 92
[2019-11-30] VITALS (7 sets, daily range): BP systolic 91–125; BP diastolic 55–82; PULSE 88–99; TEMP 97.9–98.7
--- NOTE | 2019-11-30 01:45 | NUR ---
Called to nurses station requesting pain medications. C/o pain to left arm-rating pain 8/10 on pain scale-described as constant throbbing. Oxycodone given per dr canseco. Will monitor.
--- NOTE | 2019-11-30 02:50 | NUR ---
Called nurses station with c/o pain to left arm-rating pain 7/10 on pain scale-described as constant ache/throb. Toradol 15mg given IV per dr order.
--- NOTE | 2019-11-30 05:53 | NUR ---
Rested off and on this shift. Received PO pain meds as well as toradol regularly. Tolerating PO. Denied nausea/shortness of breath. VS remained stable-did have an episode of hypotension-reverified with manual blood pressure cuff 90s/50s. Denies current needs. Call light in reach. Will monitor.
[2019-11-30 07:43] LABS: BASO % 0.2 % (0.0-2.0); EOS # 0.1 (0.0-0.7); EOS % 1.9 % (0-4.0); GRAN # 3.3 (1.4-6.5); GRAN % 52.3 % (42.2-75.2); HEMATOCRIT 37.6 % (42.0-52.0); HEMOGLOBIN 12.3 g/dl (13.5-18.0); LYMPH # 2.4 (1.2-3.4); LYMPH % 37.3 % (20.0-51.0); MEAN CELL VOLUME 90 fl (80.0-100.0); MEAN CORPUSCULAR HEMOGLOBIN 29 pg (27.0-31.0); MEAN CORPUSCULAR HGB CONC 33 g/dl (33.0-37.0); MEAN PLATELET VOLUME 9.1 fl (7.4-10.4); MONO # 0.5 (0.1-0.6); PLATELET COUNT 179 K/mm3 (130-400); RED BLOOD COUNT 4.18 M/mm3 (4.20-5.60); REDCELL DISTRIBUTION WIDTH-CV 14.4 % (11.5-14.5)
[2019-11-30 08:00] LABS: CREATININE, serum 0.79 (0.66-1.25); POTASSIUM 4.2 mmol/L (3.4-5.0)
--- NOTE | 2019-11-30 08:00 | NUR ---
PATIENT IS DROWSY AND RESTING IN BED. PATIENT IS A&O. BLOOD PRESSURE IS A LITTLE SOFT THIS MORNING. WILL CONTINUE TO MONITOR. SHALLOW TACHYPNIC BREATHING NOTED. PATIENT DENIES SOB. OTHERWISE VSS. 1+ PITTING EDEMA TO BLE. NON-PITTING EDEMA TO LUE. GAUZE AND GIN WRAP DRESSING CD&I. CAP REFILL <3 SECONDS. CMS INTACT. LUE ELEVATED ON TWO PILLOWS. ICE PACK IN PLACE. CALL LIGHT WITHIN REACH. PATIENT DENIES ANY NEEDS AT THIS TIME.
--- NOTE | 2019-11-30 10:26 | NUR ---
KITCHEN CALLED AND NOTIFIED OF PATIENTS FLUID RESTRICTION. MULTIPLE BEVERAGES WERE SENT UP WITH THE PATIENTS BREAKFAST. DIET ORDER UPDATED. PATIENT EDUCATED ON FLUID RESTRICTION ALLOTMENT FOR THE DAY AND EDUCATED TO TAKE IT SLOW WITH THE FLUIDS OF THE REST OF THE DAY. PATIENT STATES HIS UNDERSTANDING.
--- NOTE | 2019-11-30 11:24 | NUR ---
Attempted to meet with pt for CHF education. Pt stated that he was very tired and requested that this CM to come back at another time.
--- NOTE | 2019-11-30 13:49 | NUR ---
PATIENT GIVEN PRN PO PAIN MEDICATION AT THIS TIME FOR PAIN IN HIS LEFT ARM DESCRIBED A SHARP, THROBBING PAIN. LUE ELEVATED ON PILLOWS. VANC TROUGH WITHIN LIMITS AND HUNG AT THIS TIME. PATIENT DENIES ANY OTHER NEEDS AT THIS TIME.
--- NOTE | 2019-11-30 14:09 | NUR ---
PATIENT REPORT GIVEN TO ABIODUN MCKINNON.
--- NOTE | 2019-11-30 15:41 | NUR ---
PT is recommending outpatient OT for his left hand weakness. ONDINA met with the patient and his girlfriend, Ann, to discuss this. The patient reports that he would be interested in outpatient PT and would prefer it at [facility] on [address]. ONDINA attempted to contact [facility] on [address] to schedule an appointment. ONDINA left them a voicemail. The patient is to tentatively d/c tomorrow. The patient states that his stopper setter, Larry, will be able to transport him home. Ann states that she is unable to drive. SW to continue to follow.
--- NOTE | 2019-11-30 16:25 | NUR ---
[facility] on [facility] returned ONDINA's phone call. An outpatient OT appointment was scheduled on Wednesday, 12/07, at 1345. ONDINA will need to fax the patients d/c orders to [phone]. ONDINA to inform the unit manager convenience stores of the appointment. ONDINA to continue to follow.
--- NOTE | 2019-11-30 17:45 | NUR ---
Patient called out to nurses station, requesting miralax and Tums, contacted Dr. Coppola for orders, entered in computer. Upon entry to patient room, patient making out with girlfriend, girlfriend riding patient leg. Asked patient and girlfriend to desist.
--- NOTE | 2019-11-30 18:57 | NUR ---
Patient doing well, denies pain at this time. Reported off to assembler 1st shift.
--- NOTE | 2019-11-30 20:00 | NUR ---
PATIENT RESTING IN BED DURING CHANGE OF SHIFT REPORT FROM DAY SHIFT NURSE. SALINE LOCK IN PLACE, TELE IN PLACE. PATIENT CONTINUES IN CONTACT ISOLATION FOR HX MRSA, LAB RESULTS PENDING REGARDING MRSA FROM L WRIST SURGICAL WOUND
--- NOTE | 2019-11-30 23:53 | NUR ---
Placed patient on 2L nasal cannula for sleeping.
--- NOTE | 2019-12-01 00:30 | NUR ---
PATIENT RESTING QUIETLY WITH NO REPORTED NEEDS EXPRESSED. CONTINUES IN CONTACT ISOLATION.
[2019-12-01 04:14] VITALS: BP 116/82; PULSE 91; TEMP 98
--- NOTE | 2019-12-01 07:19 | NUR ---
CHANGE OF SHIFT REPORT GIVEN TO DAY SHIFT NURSEFLORENTINO. TELE IN PLACE. PATIENT CONTINUES IN ISOLATION.
[2019-12-01 07:22] VITALS: BP 110/80; PULSE 96; TEMP 97.7
[2019-12-01] MEDS ORDERED: MONODOX100 PO (08:42)
[2019-12-01] MEDS ORDERED: IBU600 MG PO (08:46)
--- NOTE | 2019-12-01 08:46 | NUR ---
Dr Coppola here to see patient.
--- NOTE | 2019-12-01 08:58 | NUR ---
ONDINA notified the community education specialist of the outpatient OT appointment. The patient is to discharge back home with his girlfriend today, 11/30, with outpatient OT at [facility] on . ONDINA faxed the patient's d/c orders to [facility] on . ONDINA met with the patient and presented and read the IM form outloud to him. The patient verbalized understanding and gave ONDINA approval to sign the form on his behalf. He declined a copy. The patient states that he has already contacted his corporate attorney, Larry, for a ride home. No additional needs at this time.
--- NOTE | 2019-12-01 09:32 | NUR ---
Patient alert and oriented, answers questions appropriately. See assessment. LUE with dressing CDI, dressing changed, wick pulled back approx one inch, gauze and GIN replaced. Discharged instructions reviewed with patient, verbalized understanding. Discharged via wheelchair to auto/home with friend at 0934.
== END 2019-12-01 09:34 | disposition home or self-care (01) | DRG 602 ==
LOC: COL.ER 14:22 → SURG 16:44 → COL.ER 16:44 → SURG 16:44
PROVIDERS: Family Medicine; Physician Assistant; ADMIT Student in an Organized Health Care Education/Training Program
DX: L03.114 Cellulitis of left upper limb (principal); I50.23 Acute on chronic systolic (congestive) heart failure; L02.512 Cutaneous abscess of left hand; I48.0 Paroxysmal atrial fibrillation; I25.10 Atherosclerotic heart disease of native coronary artery without angina pectoris; R07.89 Other chest pain; E66.01 Morbid (severe) obesity due to excess calories; G89.29 Other chronic pain; G62.9 Polyneuropathy, unspecified; F41.9 Anxiety disorder, unspecified; F32.9 Major depressive disorder, single episode, unspecified; I10 Essential (primary) hypertension; E78.5 Hyperlipidemia, unspecified; I27.20 Pulmonary hypertension, unspecified; F17.200 Nicotine dependence, unspecified, uncomplicated; Z95.818 Presence of other cardiac implants and grafts; Z95.0 Presence of cardiac pacemaker
CPT/HCPCS: 99223-AI; 99233-AI; 99239; J0690; J1170; J1815; J1885; J1940; J2270; J2405; J3370; J7040

== ENCOUNTER 2020-04-11 04:14 | Inpatient (IN) | payer MEDICARE, MEDICAID ==
[~2020-04-11] VITALS: Ht 198.1 cm; Wt 173.4 kg
[~2020-04-11 04:14] MED LIST changes: +IBU600 MG PO; +MONODOX100 PO
[2020-04-11 04:59] LABS: ARTERIAL BLD GAS O2 SATURATION 97.4 % (92-100); ARTERIAL BLOOD GAS BASE EXCESS -1.7 (-2-2); ARTERIAL BLOOD GAS HCO3 24.6 meq/L (22-26); ARTERIAL BLOOD GAS PCO2 47.1 mmHg (35-45); ARTERIAL BLOOD GAS PO2 100.4 mmHg (80-100); ARTERIAL BLOOD GAS pH 7.34 (7.35-7.45)
[2020-04-11 05:08] LABS: COLLECTION METHOD CLEAN CATCH
[2020-04-11 05:16] LABS: HYALINE CAST >12 /lpf; MUCOUS Present /lpf; PH 5 (5-8); SQUAMOUS EPITHELIAL 0-2 /hpf; URINE APPEARANCE Clear; URINE BACTERIA None Seen /hpf; URINE BILIRUBIN Negative (NEGATIVE); URINE BLOOD Negative (NEGATIVE); URINE COLOR Yellow; URINE GLUCOSE Negative (NEGATIVE); URINE KETONE Negative (NEGATIVE); URINE LEUKOCYTE ESTERASE Negative (NEGATIVE); URINE NITRATE Negative (NEGATIVE); URINE PROTEIN(semi-quant) 1+ (NEGATIVE); URINE RBC 0-2 /hpf; URINE UROBILINOGEN >=4.0 mg/dL (NEGATIVE)
[2020-04-11 05:22] LABS: TRICYCLIC ANTIDEPRESS URINE NEGATIVE
[2020-04-11 06:24] LABS: ARTERIAL BLD GAS TCO2 CT 23.8; ARTERIAL BLOOD GAS BASE EXCESS -1.6 (-2-2); ARTERIAL BLOOD GAS HCO3 22.7 meq/L (22-26); ARTERIAL BLOOD GAS PCO2 36.9 mmHg (35-45); ARTERIAL BLOOD GAS pH 7.41 (7.35-7.45)
[2020-04-11 06:47] LABS: BASO # 0.1 (0.0-0.2); BASO % 0.9 % (0.0-2.0); EOS # 0.1 (0.0-0.7); EOS % 0.8 % (0-4.0); GRAN # 4.4 (1.4-6.5); GRAN % 59.3 % (42.2-75.2); HEMATOCRIT 47.1 % (42.0-52.0); HEMOGLOBIN 13.9 g/dl (13.5-18.0); LYMPH # 2.2 (1.2-3.4); LYMPH % 29.1 % (20.0-51.0); MEAN CELL VOLUME 83 fl (80.0-100.0); MEAN CORPUSCULAR HEMOGLOBIN 25 pg (27.0-31.0); MEAN CORPUSCULAR HGB CONC 30 g/dl (33.0-37.0); MONO # 0.7 (0.1-0.6); MONO % 9.6 % (1.7-9.3); PLATELET COUNT 243 K/mm3 (130-400); RED BLOOD COUNT 5.67 M/mm3 (4.20-5.60); REDCELL DISTRIBUTION WIDTH-CV 17.4 % (11.5-14.5)
[2020-04-11 06:53] LABS: INR 3.4 (0.8-3.0)
[2020-04-11 07:02] LABS: ALANINE AMINOTRANSFERASE 83 U/L (4-49); ALBUMIN 4.1 gm/dL (3.5-5.0); ALKALINE PHOSPHATASE 190 U/L (50-136); ANION GAP 13 mmol/L (7-16); AST,SGOT 195 U/L (15-37); BILIRUBIN,TOTAL 3.3 mg/dL (0.0-1.0); BLOOD UREA NITROGEN 38 mg/dL (9-20); CALCIUM 8.4 mg/dL (8.4-10.2); CARBON DIOXIDE 28 mmol/L (22-30); CHLORIDE 94 mmol/L (98-107); CREATINE KINASE 412 U/L (55-170); CREATININE, serum 1.42 (0.66-1.25); GLUCOSE 101 mg/dL (74-106); POTASSIUM 4.8 mmol/L (3.4-5.0); SODIUM 134 mmol/L (137-145); TOTAL PROTEIN 8.2 gm/dL (6.4-8.2)
[2020-04-11 07:04] LABS: ACETAMINOPHEN < 10 ug/mL (10-30); ALCOHOL(ethanol),MEDICAL < 10 mg/dL; SALICYLATE < 1.0 mg/dL
[2020-04-11 07:18] LABS: TROPONIN-I 0.036 ng/mL (0.000-0.035)
--- NOTE | 2020-04-11 11:18 | NUR ---
Pt up to room 314 at this time by technical writing lead/mgr. Assisted to bed, bed alarm on, pt sleeping/very drowsy. Pt on 3L oxymask at this time. Unable to complete med rec or admission at this time.
[2020-04-11 12:53] VITALS: BP 116/76; PULSE 83
--- NOTE | 2020-04-11 14:39 | NUR ---
Pt still laying in bed, wearing O2, satting very well. Pt is very drowsy, minimal repsonse noted from pt. pt was able to shift onto abed from ER stretcher. Pt has LFA and RFA INT IVs, both flush well w/o issue. NS @ 75ml/hr started to LFA IV. Pts extremities very cold, dry. Edema not LE and generalized 3+. Breathing is even and unlabored. HRRR. Pt received 0.4mg narcan @ 1345, no response. Labs obtained. Pt NPO at this time. Unable to completed med rec, allergies and admission at this time.
[2020-04-11 15:34] VITALS: BP 132/84; PULSE 109; TEMP 99.3
[2020-04-11 15:37] VITALS: BP 90/45; PULSE 80; TEMP 97.6
[2020-04-11 20:01] VITALS: BP 130/76; PULSE 81; TEMP 98.5
--- NOTE | 2020-04-11 20:49 | NUR ---
DAQUAN CULVRE NOTIFIED BLOOD SUGAR OF 60. ORDER TO FOLLOW ORDERS IN MAY AND RECHECK BLOOD SUGAR IN ONE HOUR.
[2020-04-12] VITALS (7 sets, daily range): BP systolic 104–153; BP diastolic 61–103; PULSE 86–108; TEMP 97.5–98.1
[2020-04-12 06:26] LABS: BASO % 0.5 % (0.0-2.0); EOS # 0.1 (0.0-0.7); EOS % 1.9 % (0-4.0); GRAN # 4.2 (1.4-6.5); GRAN % 66.7 % (42.2-75.2); HEMATOCRIT 42.7 % (42.0-52.0); HEMOGLOBIN 12.7 g/dl (13.5-18.0); LYMPH # 1.4 (1.2-3.4); LYMPH % 22.2 % (20.0-51.0); MEAN CELL VOLUME 83 fl (80.0-100.0); MEAN CORPUSCULAR HEMOGLOBIN 25 pg (27.0-31.0); MEAN CORPUSCULAR HGB CONC 30 g/dl (33.0-37.0); MEAN PLATELET VOLUME 10.2 fl (7.4-10.4); MONO # 0.5 (0.1-0.6); MONO % 8.4 % (1.7-9.3); PLATELET COUNT 242 K/mm3 (130-400); RED BLOOD COUNT 5.12 M/mm3 (4.20-5.60); REDCELL DISTRIBUTION WIDTH-CV 17.2 % (11.5-14.5)
[2020-04-12 06:44] LABS: INR 2.5 (0.8-3.0); PROTHROMBIN TIME 28.3 SECONDS (9.7-12.8)
[2020-04-12 06:45] LABS: ALBUMIN 3.3 gm/dL (3.5-5.0); BILIRUBIN,TOTAL 3.3 mg/dL (0.0-1.0); CALCIUM 7.9 mg/dL (8.4-10.2); CREATININE, serum 1.04 (0.66-1.25); POTASSIUM 3.6 mmol/L (3.4-5.0); TOTAL PROTEIN 6.8 gm/dL (6.4-8.2)
--- NOTE | 2020-04-12 13:39 | NUR ---
Pt assessment completed and charted, medications administered per may. Pt A&O today, c/o pain to back, tailbone and legs. Pt has very dry skin all over, scaling and flaking to BLE, small ulcers to Rt foot, unopened, no drainage noted. UL LS diminished, bases cta, HRRR. Pt has LFA and RFA INT IVs that flush w/o issue. Pt does have mild cough, denies SOB, N/V/D, chest pain. Pt on room air, satting well. Tolerating food and liquids well. Pulses palpable. Pt requesting nicotine patch, called HERRERA Zarate, ordered placed. Order to change neuro checks to once a shift as well. NO further needs expressed at this time.
--- NOTE | 2020-04-12 14:57 | NUR ---
ONDINA met with the patient to discuss discharge plan. The patient lives in [place] with his girlfriend, Ann. Ann's phone is off and not working right now. He reports needing occasional help with bathing and has a cane and showerchair. He states that Ann assists him with bathing, if needed. The patient's PCP is Dr. Helder Bates and he receives his medications from [facility]. He reports no difficulties obtaining his meds. The patient does not have a DPOA-HC, but he was interested in obtaining a form. ONDINA provided. The patient states that he is not . He has three children that are 18, 17, and 15 years-old. He states that they are with their mother and she does not let him see them. The patient states that his mother, Ary, lives in [place]. He does not have his cell phone and could not recall her number. ONDINA informed the patient about how his legal next-of-kin is his 18-year-old child and encouraged him to complete a DPOA-HC. The patient verbalized understanding, but he did not not want to complete one at this time The patient states that his friend is bringing up his phone and junior data analyst today and then he will have a number for his mother. The patient plans to return home with his girlfriend upon discharge. He states that he may need transport home. ONDINA contacted his PCP's office to inquire if they have a number for his mother or emergency contact. The human resources receptionist reports that they do not. ONDINA to continue to follow.
[2020-04-13 03:28] VITALS: BP 116/82; PULSE 99; TEMP 97.5
[2020-04-13 07:11] LABS: ALBUMIN 3.3 gm/dL (3.5-5.0); BILIRUBIN,TOTAL 2.5 mg/dL (0.0-1.0); CALCIUM 7.8 mg/dL (8.4-10.2); CREATININE, serum 0.73 (0.66-1.25); POTASSIUM 3.9 mmol/L (3.4-5.0); TOTAL PROTEIN 6.8 gm/dL (6.4-8.2)
[2020-04-13 07:49] VITALS: BP 126/74; PULSE 78; TEMP 97.4
[2020-04-13] MEDS ORDERED: DESENEX TP (08:21)
[2020-04-13] MEDS ORDERED: CLOTRIM ANTIFUNGAL1% TP (08:22)
--- NOTE | 2020-04-13 08:30 | NUR ---
PT TOOK PILLS THEN ASKED "WHERE'S MY PAIN PILL?". EDUCATED PT HE HAD TO ASK FOR THEM AND COULD GET IT EVERY 8H. PT REPORTING PAIN 8/10 IN LOW BACK. PT NOT GRIMACING OR SHOWING SIGNS OF DISCOMFORT, PT ASSESSMENT PERFORMED, LOTRIMIN CREAM PLACED ON PT L ARM, NICOTINE PATCH PLACED, ALL OTHER MEDS GIVEN, NO OTHER NEEDS.
[2020-04-13 10:22] LABS: BASO % 0.8 % (0.0-2.0); EOS # 0.1 (0.0-0.7); EOS % 1.6 % (0-4.0); GRAN # 2.5 (1.4-6.5); GRAN % 52.1 % (42.2-75.2); HEMATOCRIT 41.4 % (42.0-52.0); HEMOGLOBIN 12.6 g/dl (13.5-18.0); LYMPH # 1.7 (1.2-3.4); MEAN CELL VOLUME 81 fl (80.0-100.0); MEAN CORPUSCULAR HEMOGLOBIN 25 pg (27.0-31.0); MEAN CORPUSCULAR HGB CONC 30 g/dl (33.0-37.0); MEAN PLATELET VOLUME 9.6 fl (7.4-10.4); MONO # 0.6 (0.1-0.6); MONO % 11.3 % (1.7-9.3); PLATELET COUNT 233 K/mm3 (130-400); RED BLOOD COUNT 5.13 M/mm3 (4.20-5.60); REDCELL DISTRIBUTION WIDTH-CV 17.2 % (11.5-14.5)
[2020-04-13 10:47] LABS: INR 1.7 (0.8-3.0); PROTHROMBIN TIME 19.4 SECONDS (9.7-12.8)
[2020-04-13] MEDS ORDERED: NOVOLOG 100U100 U/M1 SQ (10:53)
[2020-04-13 11:56] VITALS: BP 140/90; PULSE 110; TEMP 97.8
--- NOTE | 2020-04-13 12:05 | NUR ---
SW was provided with travel voucher by Sales Order Clerk Stefano. SW notified patient's RN and placed voucher on patient's chart. SW touched base on DPOA paperwork. Patient has paperwork to fill out later, but did not want to do so at this time. Patient was notified of cab voucher. There are no other needs at this time.
[2020-04-13] MEDS ORDERED: AMOXICILLIN 8751 TAB PO (12:14)
--- NOTE | 2020-04-13 13:50 | NUR ---
DISCHARGE EDUCATION PROVIDED, ASSISTED PT IN CALLING [facility], TELE REMOVED, INT'S REMOVED, NO OTHER NEEDS AT THIS TIME.
--- NOTE | 2020-04-13 14:00 | NUR ---
pt escorted to er entrance via wheelchair with discharge paperwork.
== END 2020-04-13 14:00 | disposition home or self-care (01) | DRG 917 ==
LOC: COL.ER 04:14 → MEDICAL 07:12
PROVIDERS: Family Medicine; Internal Medicine; Physician Assistant; ADMIT Hospitalist
DX: T40.2X1A Poisoning by other opioids, accidental (unintentional), initial encounter (principal); G92 Toxic encephalopathy; J96.01 Acute respiratory failure with hypoxia; J69.0 Pneumonitis due to inhalation of food and vomit; N17.9 Acute kidney failure, unspecified; E87.1 Hypo-osmolality and hyponatremia; I50.22 Chronic systolic (congestive) heart failure; T42.4X1A Poisoning by benzodiazepines, accidental (unintentional), initial encounter; E11.649 Type 2 diabetes mellitus with hypoglycemia without coma; R79.1 Abnormal coagulation profile; L30.4 Erythema intertrigo; I25.10 Atherosclerotic heart disease of native coronary artery without angina pectoris; R77.8 Other specified abnormalities of plasma proteins; I48.0 Paroxysmal atrial fibrillation; I27.20 Pulmonary hypertension, unspecified; E11.40 Type 2 diabetes mellitus with diabetic neuropathy, unspecified; J44.9 Chronic obstructive pulmonary disease, unspecified; F10.10 Alcohol abuse, uncomplicated; F41.9 Anxiety disorder, unspecified; F32.9 Major depressive disorder, single episode, unspecified; I11.0 Hypertensive heart disease with heart failure; I95.9 Hypotension, unspecified; E78.5 Hyperlipidemia, unspecified; G89.29 Other chronic pain; F17.210 Nicotine dependence, cigarettes, uncomplicated; Z95.5 Presence of coronary angioplasty implant and graft; Z85.72 Personal history of non-Hodgkin lymphomas
CPT/HCPCS: 99222-AI; 99232-AI; 99239; J1610; J2310; J2550; J7030; J7050

== ENCOUNTER 2020-05-12 00:04 | Emergency (ER) | payer MEDICARE, MEDICAID ==
[~2020-05-12] VITALS: Ht 188 cm; Wt 170.5 kg
[2020-05-12 00:04] VITALS: TEMP 98.7
[~2020-05-12 00:04] MED LIST changes: +CLOTRIM ANTIFUNGAL1% TP; +DESENEX TP
[2020-05-12 00:15] LABS: ARTERIAL BLD GAS O2 SATURATION 72.5 % (92-100); ARTERIAL BLD GAS TCO2 CT 32.2; ARTERIAL BLOOD GAS BASE EXCESS 1.7 (-2-2); ARTERIAL BLOOD GAS HCO3 30.2 meq/L (22-26); ARTERIAL BLOOD GAS pH 7.28 (7.35-7.45)
[2020-05-12 00:16] LABS: ARTERIAL BLOOD GAS PCO2 65.6 mmHg (35-45); ARTERIAL BLOOD GAS PO2 44.9 mmHg (80-100)
[2020-05-12 00:45] LABS: BASO # 0.1 (0.0-0.2); BASO % 0.9 % (0.0-2.0); EOS # 0.1 (0.0-0.7); EOS % 1.1 % (0-4.0); GRAN # 3.5 (1.4-6.5); HEMATOCRIT 45.7 % (42.0-52.0); HEMOGLOBIN 13.7 g/dl (13.5-18.0); LYMPH # 2.1 (1.2-3.4); LYMPH % 33.2 % (20.0-51.0); MEAN CELL VOLUME 80 fl (80.0-100.0); MEAN CORPUSCULAR HEMOGLOBIN 24 pg (27.0-31.0); MEAN CORPUSCULAR HGB CONC 30 g/dl (33.0-37.0); MEAN PLATELET VOLUME 9.6 fl (7.4-10.4); MONO # 0.6 (0.1-0.6); MONO % 9.3 % (1.7-9.3); PLATELET COUNT 319 K/mm3 (130-400); RED BLOOD COUNT 5.75 M/mm3 (4.20-5.60); REDCELL DISTRIBUTION WIDTH-CV 20.6 % (11.5-14.5)
[2020-05-12 01:00] LABS: ALBUMIN 4.1 gm/dL (3.5-5.0); BILIRUBIN,TOTAL 3.2 mg/dL (0.0-1.0); CALCIUM 8.7 mg/dL (8.4-10.2); CREATININE, serum 1.2 (0.66-1.25); POTASSIUM 4.3 mmol/L (3.4-5.0); TOTAL PROTEIN 8.7 gm/dL (6.4-8.2)
[2020-05-12 01:11] LABS: TROPONIN-I 0.03 ng/mL (0.000-0.035)
[2020-05-12 01:27] LABS: INR 1.8 (0.8-3.0); PROTHROMBIN TIME 20.1 SECONDS (9.7-12.8)
[2020-05-12 01:46] LABS: ARTERIAL BLD GAS O2 SATURATION 99.8 % (92-100); ARTERIAL BLD GAS TCO2 CT 27.4; ARTERIAL BLOOD GAS BASE EXCESS -2.3 (-2-2); ARTERIAL BLOOD GAS HCO3 25.6 meq/L (22-26); ARTERIAL BLOOD GAS PCO2 57.8 mmHg (35-45); ARTERIAL BLOOD GAS pH 7.27 (7.35-7.45)
[2020-05-12 01:47] LABS: ARTERIAL BLOOD GAS PO2 269.9 mmHg (80-100)
[2020-05-12 04:54] LABS: ARTERIAL BLD GAS O2 SATURATION 96.3 % (92-100); ARTERIAL BLD GAS TCO2 CT 27.6; ARTERIAL BLOOD GAS BASE EXCESS -1.8 (-2-2); ARTERIAL BLOOD GAS HCO3 25.9 meq/L (22-26); ARTERIAL BLOOD GAS PCO2 56.1 mmHg (35-45); ARTERIAL BLOOD GAS PO2 93.6 mmHg (80-100); ARTERIAL BLOOD GAS pH 7.28 (7.35-7.45)
[2020-05-12 06:35] LABS: TRICYCLIC ANTIDEPRESS URINE NEGATIVE
[2020-05-12 07:51] VITALS: BP 108/89; PULSE 107
== END 2020-05-12 08:14 | disposition short-term general hospital (02) ==
LOC: COL.ER 00:04
PROVIDERS: Emergency Medicine
DX: F19.10 Other psychoactive substance abuse, uncomplicated (principal); I25.10 Atherosclerotic heart disease of native coronary artery without angina pectoris; I11.0 Hypertensive heart disease with heart failure; I48.91 Unspecified atrial fibrillation; J44.9 Chronic obstructive pulmonary disease, unspecified; E11.9 Type 2 diabetes mellitus without complications; F41.9 Anxiety disorder, unspecified; I50.9 Heart failure, unspecified; Z85.72 Personal history of non-Hodgkin lymphomas; Z95.0 Presence of cardiac pacemaker; Z79.4 Long term (current) use of insulin; Z79.01 Long term (current) use of anticoagulants; Z20.822 Contact with and (suspected) exposure to COVID-19
CPT/HCPCS: J1940; J2310